=== PATIENT | female | born 1950 | race Caucasian/White ===

== ENCOUNTER 2022-03-25 08:15 | Outpatient (RCR) | payer OTHER, SELFPAY | END 2022-06-25 10:42 | disposition home or self-care (01) | PROVIDERS: PCP Family Medicine; Visit Provider Family Medicine | DX: R26.9 Unspecified abnormalities of gait and mobility (principal); Z51.89 Encounter for other specified aftercare | CPT/HCPCS: 97110; 97162 ==

== ENCOUNTER 2022-12-09 17:28 | Inpatient (IN) | payer OTHER, SELFPAY ==
[2022-12-09] VITALS (14 sets, daily range): BP systolic 132–192; BP diastolic 79–100; PULSE 63–92; RESP 16–18; TEMP 36.4–36.6; O2SAT 87–98; BMI 47.8
--- NOTE | 2022-12-09 21:02 | ED.ABDPAIN ---
HPI - Abdominal Pain General Time Seen by Provider: 21:02 Date Seen: 12/09/22 Chief Complaint: Abdominal Pain Stated Complaint: Bloody stool and constipation Time Seen by Provider: 12/09/22 21:02 Source: patient, RN notes reviewed and old records reviewed Mode of arrival: ambulatory Limitations: no limitations History of Present Illness HPI narrative: Desiree is a very pleasant 72-year-old female with a history of GI bleed in 2017 who comes to the emergency room for evaluation regarding left lower quadrant pain and associated diarrhea with blood. Patient had the onset of diarrhea at approximately 1400 hours earlier today. She notes that she is usually constipated. She went to the bathroom and then laid down and when she had to go back she had bright red blood. She has pain in the left lower quadrant but it is also now radiating into the suprapubic area. She has not had a fever but states that she feels chilled. She has had nausea but no vomiting. She has not had a history of diverticulitis in the past. According to notes she does have a history of possible ulcers at our bear its esophagus. She is not feeling lightheaded and nor has she had chest pain. At baseline she has shortness of breath that she describes as exercise-induced asthma. She is not particularly worse at this time. Patient is not currently on blood thinners but does take aspirin daily. No aspirin yet today. Last dose 24 hours ago. Related Data Allergies Allergy/AdvReac Type Severity Reaction Status Date / Time duloxetine [From Cymbalta] AdvReac Severe Dizziness Verified 12/09/22 17:48 Review of Systems Status of ROS Reports: 10 or more systems reviewed and unremarkable except as noted in History and below Const Reports: chills; Denies: fever or fatigue ENMT Denies: throat pain, neck pain or difficulty swallowing Cardio Denies: chest pain, palpitations, swelling of feet/ankles or lightheadedness GI Reports: abdominal pain, nausea, diarrhea and blood in stool; Denies: difficulty swallowing Denies: painful urination or urinary frequency Musculo Denies: back pain or neck pain Integ/Breast Denies: rash Neuro Denies: headache or numbness in extremities Endo Denies: fatigue PFSH PFSH Social History Smoking Status: Former smoker Do you use any of these nicotine containing products: None Second hand tobacco smoke exposure: No How often do you have a drink containing alcohol: never How often do you have six or more drinks on one occasion: Never AUDIT-C Alcohol total score: 0 Non-prescribed substance use: denies use Exam Narrative: Exam Narrative: Alert and oriented. Normal color. Normal mentation. Oral cavity with moist mucous membranes and neck is supple. Heart with regular rate and rhythm and lungs are clear bilaterally. Abdomen is with tenderness left lower quadrant suprapubic area and left upper quadrant. Abdomen is obese and is otherwise soft. Lower extremities without edema. Moving all extremities. No peritoneal signs at this time. Const: Vital Signs, click to edit/add: Vital Signs - 24 hr 12/09/22 17:45 12/09/22 19:54 12/09/22 21:08 Temperature 97.9 F 97.6 F Pulse Rate 66 Pulse Rate [Right Pulse Oximeter] 63 71 Respiratory Rate 16 18 18 Blood Pressure 154/90 H Blood Pressure [Ri ght Upper Arm] 132/79 151/81 H Pulse Oximetry 98 96 97 Oxygen Delivery Me thod Room Air Room Air 12/09/22 21:30 12/09/22 21:32 12/09/22 21:33 Temperature Pulse Rate 69 73 72 Pulse Rate [Right Pulse Oximeter] Respiratory Rate Blood Pressure 156/81 H Blood Pressure [Ri ght Upper Arm] Pulse Oximetry 87 L 89 91 Oxygen Delivery Me thod 12/09/22 22:29 12/09/22 22:30 12/09/22 22:33 Temperature Pulse Rate 88 92 84 Pulse Rate [Right Pulse Oximeter] Respiratory Rate Blood Pressure 192/94 H Blood Pressure [Ri ght Upper Arm] Pulse Oximetry 94 95 92 Oxygen Delivery Me thod 12/09/22 23:00 12/09/22 23:02 Temperature Pulse Rate 79 83 Pulse Rate [Right Pulse Oximeter] Respiratory Rate Blood Pressure 187/97 H Blood Pressure [Ri ght Upper Arm] Pulse Oximetry 92 92 Oxygen Delivery Me thod Documenting provider has reviewed patient's vital signs: yes Course Course Hospital Course: Differential diagnosis includes but is not limited to diverticulitis, colitis, diverticular bleed, enteritis, proctitis. Will place IV give morphine 4 mg Zofran 4 mg and 1 L of normal saline. Labs to include CBC, comprehensive, CRP, lipase, urinalysis and abdominal CT. Reevaluation(s) Reevaluation #1: Patient noted to be improved after morphine. CT shows colitis thought to be infectious in nature. Vital Signs Vital signs: Initial Vital Signs Temperature 97.9 F 12/09/22 17:45 Temperature Source Temporal Artery Scan 12/09/22 17:45 Pulse Rate 63 12/09/22 17:45 Pulse Rhythm Regular 12/09/22 17:45 Pulse Strength 3+ Normal 12/09/22 17:45 Respiratory Rate 16 12/09/22 17:45 Blood Pressure 132/79 12/09/22 17:45 Blood Pressure Mean 96 12/09/22 17:45 Pulse Oximetry 98 12/09/22 17:45 Oxygen Delivery Method Room Air 12/09/22 17:45 Vital Signs Temperature 97.9 F 12/09/22 17:45 Pulse Rate 63 12/09/22 17:45 Respiratory Rate 16 12/09/22 17:45 Blood Pressure 132/79 12/09/22 17:45 Pulse Oximetry 98 12/09/22 17:45 Oxygen Delivery Method Room Air 12/09/22 17:45 Temperature 97.6 F 12/09/22 19:54 Pulse Rate 83 12/09/22 23:02 Respiratory Rate 18 12/09/22 21:08 Blood Pressure 187/97 H 12/09/22 23:02 Pulse Oximetry 92 12/09/22 23:02 Oxygen Delivery Method Room Air 12/09/22 19:54 MDM - Abdominal Pain MDM Narrative Medical decision making narrative: 1. Colitis-patient noted to have colitis based on CT with elevated white count. Radiologist further suggest that this is infectious in nature. Will start Zosyn 3.375 g IV after discussion with [facility]. Stool culture is pending. Patient has not had any further diarrhea or blood per rectum since she has been here. Vital E stable at this time as well. 2. Abdominal pain-patient's pain has been controlled with morphine in combination with Zofran. 3. Disposition-admit to the floor under the care of [facility] physician Dr. [place] Medical Records Attestation: I reviewed the patient's medical records. Lab Data Attestation: I reviewed the patient's lab results. Labs: Lab Results 12/09/22 Range/Units 20:45 WBC 11.75 H (4.50-11.00) K/uL RBC 5.06 (4.00-5.20) m/uL Hgb 15.8 (12.0-16.0) gm/dL Hct 46.9 (33.0-51.0) % MCV 93 (80-100) fL MCH 31 (26-34) pg MCHC 34 (32-36) gm/dL RDW Coeff of Tomer 12.4 (11.5-15.5) % Plt Count 186 (140-440) K/uL Neut % (Auto) 89.3 H (42.0-72.0) % Lymph % (Auto) 4.5 L (20-44) % [place] % (Auto) 4.9 (0.0-11.0) % Eos % (Auto) 0.3 (0.0-7.0) % Baso % (Auto) 0.0 (0.0-3.0) % Neut # (Auto) 10.50 H (1.7-7.0) K/uL Lymph # (Auto) 0.50 L (0.90-2.90) K/uL [place] # (Auto) 0.60 (0.00-0.90) K/UL Eos # (Auto) 0.00 (0.00-0.50) K/uL Baso # (Auto) 0.00 (0.00-0.30) K/uL Sodium 135 (135-149) mmol/L Potassium 3.9 (3.6-5.1) mmol/L Chloride 103 (96-114) mmol/L Carbon Dioxide 24 (20-32) mmol/L BUN 16 (7-30) mg/dL Creatinine 1.2 (0.5-1.5) mg/dL Estimated Creat Clear 36.09 Estimated GFR 49 ml/min Glucose 210 H (60-115) mg/dL Calcium 9.0 (8.4-10.6) mg/dL Total Bilirubin 0.6 (0.1-1.5) mg/dL AST 25 (12-35) U/L ALT 21 (4-35) U/L Alkaline Phosphatase 110 (40-150) U/L C-Reactive Protein < 0.5 L (0.5-1.0) mg/dL Total Protein 7.6 (6.0-8.3) g/dL Albumin 4.4 (3.3-5.0) g/dL Lipase 97 (23-300) U/L Imaging Data CT scan - abdomen: Attestation: I have reviewed the pertinent imaging results. Radiologist's impression: ower chest: Small hiatal hernia. Liver: Unremarkable. Normal in size and attenuation. No suspicious masses. Gallbladder and bile ducts: Unremarkable. No stones or inflammation. No biliary dilatation. Pancreas: Unremarkable. No mass or inflammation. Spleen: Unremarkable. Normal in size. No masses. Adrenal glands: Unremarkable. No nodules. Kidneys: Unremarkable. No suspicious masses, stones, or hydronephrosis. GI tract: Acute inflammation and edema present in the distal colon. Remainder of the GI tract is normal in caliber and appearance. Normal appendix. Vasculature: Abdominal aorta is normal in caliber. Mesenteric arteries are patent. Lymph nodes: No lymphadenopathy. Peritoneum/Abdominal Wall: Unremarkable. No sign of mass or infiltration. No free air or significant free fluid. Pelvis: Unremarkable. Bones: Multilevel degenerative spondylosis in the lumbar spine. IMPRESSION: Acute distal colitis which is likely infectious in nature. Discharge Plan Discharge Clinical Impression: Colitis with rectal bleeding, Colitis Patient Disposition: Admitted As Observation
--- NOTE | 2022-12-09 21:10 | CRLHL7_ITS ---
For Patients: As a result of the Cures Act, medical imaging exams and procedure reports are released immediately into your electronic medical record. You may view this report before your referring provider. If you have questions, please contact your health care provider. INDICATION: Left lower quadrant abdomen pain with blood in stool. TECHNIQUE: CT abdomen and pelvis acquired with 132 cc Isovue 370 IV contrast. COMPARISON: MRI abdomen July 08, 2022. PET scan July 12, 2021. FINDINGS: Lower chest: Small hiatal hernia. Liver: Unremarkable. Normal in size and attenuation. No suspicious masses. Gallbladder and bile ducts: Unremarkable. No stones or inflammation. No biliary dilatation. Pancreas: Unremarkable. No mass or inflammation. Spleen: Unremarkable. Normal in size. No masses. Adrenal glands: Unremarkable. No nodules. Kidneys: Unremarkable. No suspicious masses, stones, or hydronephrosis. GI tract: Acute inflammation and edema present in the distal colon. Remainder of the GI tract is normal in caliber and appearance. Normal appendix. Vasculature: Abdominal aorta is normal in caliber. Mesenteric arteries are patent. Lymph nodes: No lymphadenopathy. Peritoneum/Abdominal Wall: Unremarkable. No sign of mass or infiltration. No free air or significant free fluid. Pelvis: Unremarkable. Bones: Multilevel degenerative spondylosis in the lumbar spine. IMPRESSION: Acute distal colitis which is likely infectious in nature. Please note that all CT scans at this facility use dose modulation, iterative reconstruction, and/or weight-based dosing when appropriate to reduce radiation dose to as low as reasonably achievable. Dictated by Chance Ramesh MD @ 12/09/2022 10:58:02 PM (Electronically Signed)
[2022-12-09] MEDS: ONDANSETRON 2 MG/ML inj 4 MG IVP (21:21)
[2022-12-09] MEDS: MORPHINE 4 MG/ML INJ IVP (21:22)
[2022-12-09 21:32] LABS: Eosinophils Percent Auto 0.3 % (0.0-7.0); Hematocrit 46.9 % (33.0-51.0); Hemoglobin* 15.8 gm/dL (12.0-16.0); Lymphocytes Percent Auto 4.5 % (20-44); Mean Corpuscular HGB Conc 34 gm/dL (32-36); Mean Corpuscular Hemoglobin 31 pg (26-34); Mean Corpuscular Volume 93 fL (80-100); Monocytes Percent Auto 4.9 % (0.0-11.0); Neutrophils Percent Auto 89.3 % (42.0-72.0); Platelet Count* 186 K/uL (140-440); RDW Coefficient of Variation % 12.4 % (11.5-15.5); Red Blood Count 5.06 m/uL (4.00-5.20); White Blood Count* 11.75 K/uL (4.50-11.00)
[2022-12-09 21:34] LABS: Albumin* 4.4 g/dL (3.3-5.0); Chloride* 103 mmol/L (96-114); Slide Review Reflex No; Sodium* 135 mmol/L (135-149)
[2022-12-09 21:35] LABS: Potassium* 3.9 mmol/L (3.6-5.1)
[2022-12-09 21:37] LABS: Aspartate Amino Transferase* 25 U/L (12-35); Bilirubin Total* 0.6 mg/dL (0.1-1.5); Carbon Dioxide* 24 mmol/L (20-32); Creatinine* 1.2 mg/dL (0.5-1.5); Est. Creatinine Clearance* 36.09; Estimated Glomerular Filt Rate 49 ml/min; Total Protein* 7.6 g/dL (6.0-8.3)
[2022-12-09 21:38] LABS: Alanine Aminotransferase* 21 U/L (4-35); Alkaline Phosphatase* 110 U/L (40-150); Blood Urea Nitrogen* 16 mg/dL (7-30); Glucose* 210 mg/dL (60-115); Lipase* 97 U/L (23-300)
[2022-12-09 21:41] LABS: C Reactive Protein* < 0.5 mg/dL (0.5-1.0)
[2022-12-09] MEDS: CALCIUM CARBONATE 500 MG CHEW PO (23:02)
[2022-12-09] MEDS: PIPERACILLIN/TAZOBACTAM 3.375 GM in 0.9 % SODIUM CHLORIDE Mini-bag 100 ML IVPB (23:52)
--- NOTE | 2022-12-09 23:53 | ED.NURSE ---
Report to [facility]. Patient will be going to room 278. Zosyn infusing on admission.
[2022-12-10] MEDS: HYDROmorphone 0.5 mg/0.5 ml inj IVP ×2 (00:05→06:40)
[2022-12-10 00:10] VITALS: BP 178/91; PULSE 75; RESP 18; TEMP 36.4; O2SAT 95; BMI 50.0
--- NOTE | 2022-12-10 01:03 | P.IMPN_ITS ---
Progress Note: A&P Assessment and plan (1) Colitis with rectal bleeding: Status: Acute Plan Jose [facility] Hospitalist collaboration: I have discussed in detail with Dr. Tsang. 72-year-old female who presented to the ED with left lower quadrant pain, diarrhea, bright red blood from the rectum and then had turned darker, since arriving to the ED, no episodes of bleeding in ED seen, but on arrival to the medical floor she had recurrent bright red blood per rectum. HTN but no hypotension on the medical floor. She has had chills, no fever. Abdominal pain crampy in nature, radiates into the suprapubic region. 8/10 in severity. Has not noticed a difference in pain with Morphine or Dilaudid. She has had nausea but no vomiting. No previous history of diverticulitis, but has had a history of GI bleed in 2017 related to possible ulcers of the esophagus and hiatal he rnia. No chest pain or shortness of breath that is new (does have exercise- induced asthma, but she feels her sob is at baseline). No lightheadedness, cough. No recent travel. No recent antibiotic use. Does take ASA 81mg daily but has not taken tonite. Laboratory/imaging in the ED: WBC elevated 11.75, hemoglobin 15.8, hematocrit 46.9, platelets 186. Sodium 135, potassium 3.9, chloride 103, CO2 24, BUN 16, creatinine 1.2, glucose 210, calcium 9, total bilirubin 0.6, AST 25, ALT 21, alk phosphatase 110, total protein 7.6, albumin 4.4, CRP less than 0.5. Abdominal pelvis CT reviewed acute distal colitis likely infectious in nature. In the ED she was given IV fluids, IV Dilaudid and IV morphine, Zofran, and Zosyn and has been admitted for further evaluation. Telemedicine exam: Vitals reviewed No apparent distress, alert, oriented x3 Follows commands, no lateralizing weakness Pupils equal and reactive, no scleral icterus Lips and mouth are dry, tongue midline on protrusion Neck trachea midline Heart regular rate and rhythm, no murmurs Lungs clear bilateral no crackles no wheezes Abdomen bowel sounds are positive, soft, nondistended, tenderness left lower quadrant and suprapubic region for nursing, no rebound tenderness for nursing Lower extremities no pitting edema Skin dry Assessment and plan: Left lower quadrant abdominal pain Rectal bleeding Acute colitis: Plan: Continue Zosyn that was initiated in the ED, continue IV fluid hydration, monitor the recurrent bleeding (if becomes hemodynamically unstable or if frequent bleeding that is continuos then will need to discuss with Surgery/GI tonite, but currently no tachycardia or hypotension), repeat laboratory in the a.m., stool culture is pending which was ordered in the ED. No recent antibiotic use, no history of c diff. She is not on any anticoagulation, but is on ASA 81mg at HS, hold at this time. IV fluids, IV Dilaudid, oral Oxy IR, Tylenol, Zofran. Exercise-induced asthma: No exacerbation.Find out her home inhaler dosing with med rec, she states she stopped taking one of the inhalers consistently due to gums being swollen and red when she went to a dental appointment HTN: She thinks Amlodipine/Losartan: She is having HTN now sys 178 but no SPEARS/blurry vision, will hold to avoid hypotension with GI bleed. Hypothyroidism: On Synthroid. Will resume once have dosing and med rec complete Hyperlipidemia: Rosuvastatin takes at at bedtime. Will resume once have the dosing and confirm this with med rec Restless leg syndrome: Patient was unable to tell me which one she takes, will resume once we have this verified with med rec Type 2 diabetes, she thinks she is on Ozempic once a week, again we will confirm this with med rec, monitor glucose again in the a.m. SUPA on CPAP at at bedtime. She does not have her CPAP with, nasal cannula O2 tonight Diet: N.p.o. except ice chips and okay to take oral meds, held on clear liquid diet due to recurrent bleeding on medical floor DVT prophylaxis SCDs, ambulatory, hold on pharmacologic prophylaxis with bleeding with bleeding CODE STATUS: Full code Please call E Hospitalist with questions Subjective Date Seen: 12/10/22 Exam Const: Vital Signs, click to edit/add: Vital Signs - 24 hr 12/09/22 17:45 12/09/22 19:54 12/09/22 21:08 Temperature 97.9 F 97.6 F Pulse Rate 66 Pulse Rate [Right Pulse Oximeter] 63 71 Respiratory Rate 16 18 18 Blood Pressure 154/90 H Blood Pressure [Ri ght Upper Arm] 132/79 151/81 H Pulse Oximetry 98 96 97 Oxygen Delivery Me thod Room Air Room Air 12/09/22 21:30 12/09/22 21:32 12/09/22 21:33 Temperature Pulse Rate 69 73 72 Pulse Rate [Right Pulse Oximeter] Respiratory Rate Blood Pressure 156/81 H Blood Pressure [Ri ght Upper Arm] Pulse Oximetry 87 L 89 91 Oxygen Delivery Me thod 12/09/22 22:29 12/09/22 22:30 12/09/22 22:33 Temperature Pulse Rate 88 92 84 Pulse Rate [Right Pulse Oximeter] Respiratory Rate Blood Pressure 192/94 H Blood Pressure [Ri ght Upper Arm] Pulse Oximetry 94 95 92 Oxygen Delivery Me thod 12/09/22 23:00 12/09/22 23:02 12/09/22 23:03 Temperature Pulse Rate 79 83 76 Pulse Rate [Right Pulse Oximeter] Respiratory Rate Blood Pressure 187/97 H Blood Pressure [Ri ght Upper Arm] Pulse Oximetry 92 92 91 Oxygen Delivery Me thod 12/09/22 23:30 12/09/22 23:32 Temperature Pulse Rate 86 87 Pulse Rate [Right Pulse Oximeter] Respiratory Rate Blood Pressure 190/100 H Blood Pressure [Ri ght Upper Arm] Pulse Oximetry 96 94 Oxygen Delivery Me thod Labs Labs: Laboratory Results - last 24 hr 12/09/22 20:45 WBC 11.75 H RBC 5.06 Hgb 15.8 Hct 46.9 MCV 93 MCH 31 MCHC 34 RDW Coeff of Tomer 12.4 Plt Count 186 Neut % (Auto) 89.3 H Lymph % (Auto) 4.5 L [place] % (Auto) 4.9 Eos % (Auto) 0.3 Baso % (Auto) 0.0 Neut # (Auto) 10.50 H Lymph # (Auto) 0.50 L [place] # (Auto) 0.60 Eos # (Auto) 0.00 Baso # (Auto) 0.00 Sodium 135 Potassium 3.9 Chloride 103 Carbon Dioxide 24 BUN 16 Creatinine 1.2 Estimated Creat Clear 36.09 Estimated GFR 49 Glucose 210 H Calcium 9.0 Total Bilirubin 0.6 AST 25 ALT 21 Alkaline Phosphatase 110 C-Reactive Protein < 0.5 L Total Protein 7.6 Albumin 4.4 Lipase 97
[2022-12-10] MEDS: 0.9 % SODIUM CHLORIDE 1000 ml 1,000 ML 100 ML IV ×2 (01:37→12:46)
[2022-12-10] MEDS: PANTOPRAZOLE SODIUM 40 MG INJ IVP (01:38)
[2022-12-10 03:00] VITALS: BP 146/81; PULSE 108; RESP 14; TEMP 36.4; O2SAT 96
--- NOTE | 2022-12-10 05:53 | PC.NURSE ---
Patient admitted to unit at 0010 with infectious colitis. Desiree is a pleasant and cooperative 72 year old female, accompanied to room by Tin. Alert and oriented x 4. Per patient, she had diarrhea around 2pm that had blood in it, she laid down for a bit after having the stool and then noticed lower left abdominal discomfort. Shortly after laying down she ended up needing to use the bathroom again and had bright red rectal bleeding. Patients abdomen is large, round and soft, tender to palpation. Bowel sounds active x 4 quadrants. Denies any nausea or vomiting at this time, patient did have nausea while in ER but was managed well with ondansetron. Continues to report pain to left lower quadrant, patient received prn dilaudid prior to arriving on the unit which has reduced pain to 3/10. Patient reports that she utilizes a CPAP at home but did not bring with. Lung sounds clear, denies a cough but reports that she does have shortness of breath on exertion which is normal for her at her baseline. Continent of bladder and bowel, currently requiring a depend due to continued rectal bleeding. Ambulates with stand by assist. Denies any dizziness. Admission completed with [facility], patient NPO but ok to have ice chips.
[2022-12-10] MEDS: PIPERACILLIN/TAZOBACTAM 3.375 GM in 0.9 % SODIUM CHLORIDE Mini-bag 100 ML IVPB ×3 (06:40→18:59)
[2022-12-10 07:00] VITALS: BP 132/68; PULSE 90; PULSE 94; RESP 16; TEMP 37.4; O2SAT 94
[2022-12-10 07:23] LABS: Eosinophils Percent Auto 0.1 % (0.0-7.0); Hematocrit 43.6 % (33.0-51.0); Hemoglobin* 14.9 gm/dL (12.0-16.0); Immature Granulocytes Pct Auto 0.2 %; Lymphocytes Percent Auto 7.3 % (20-44); Mean Corpuscular HGB Conc 34 gm/dL (32-36); Mean Corpuscular Hemoglobin 32 pg (26-34); Mean Corpuscular Volume 92 fL (80-100); Monocytes Percent Auto 6.3 % (0.0-11.0); Neutrophils Percent Auto 86.1 % (42.0-72.0); Platelet Count* 190 K/uL (140-440); RDW Coefficient of Variation % 12.6 % (11.5-15.5); Red Blood Count 4.72 m/uL (4.00-5.20)
[2022-12-10 07:24] LABS: Slide Review Reflex No
[2022-12-10 07:36] LABS: Albumin* 3.6 g/dL (3.3-5.0); Chloride* 107 mmol/L (96-114)
[2022-12-10 07:37] LABS: Sodium* 135 mmol/L (135-149)
[2022-12-10 07:39] LABS: Aspartate Amino Transferase* 21 U/L (12-35); Bilirubin Total* 0.7 mg/dL (0.1-1.5); Carbon Dioxide* 22 mmol/L (20-32); Creatinine* 1.1 mg/dL (0.5-1.5); Est. Creatinine Clearance* 37.64; Estimated Glomerular Filt Rate 54 ml/min
[2022-12-10 07:40] LABS: Alanine Aminotransferase* 19 U/L (4-35); Alkaline Phosphatase* 81 U/L (40-150); Blood Urea Nitrogen* 16 mg/dL (7-30); Calcium* 8.3 mg/dL (8.4-10.6); Glucose* 156 mg/dL (60-115); Total Protein* 6.5 g/dL (6.0-8.3)
--- NOTE | 2022-12-10 07:46 | PM.IMHP1 ---
Hospitalist- H&P: HPI History of Present Illness Date Seen: 12/10/22 Chief complaint: Bloody stool and constipation Narrative: Desiree Fitzpatrick is a 72 year old female who presented to our ER on 12/09 for rectal bleeding. She started having bloody stools yesterday afternoon after an episode of diarrhea; now intermittently just passing jenae blood per rectum. Intermittent abdominal cramping, no pain at rest. Had Burmese food for lunch yesterday, had same food with no symptoms. Traveled to [place], [place] 2 weeks ago. Last colonoscopy was in [address] Sidhu and exhibited moderate diverticulosis in sigmoid and descending colon, narrowing of the colon in association with diverticular opening, and evidence of diverticular spasm. ER Course and Findings - reassuring Hgb and BUN; hemodynamically stable - CT ab and pelvis revealed acute distal colitis, likely infectious in nature per formal radiology read - patient initiated on Zosyn and admitted overnight by the E-hospitalist This morning, Desiree has no concerns for hospitalist team. She continues to have intermittent BRBPR without abdominal pain (mild cramping before a BM). No urinary symptoms, no nausea or vomiting. She has been able to get up to the bathroom independently without lightheadedness or dizziness. She is thirsty. PCP is Dr. Clancy locally, PMHx updated below. Review of Systems Narrative: No lightheadedness or dizziness. No chest pain or dyspnea. Recently lost 50 pounds on Bydureon (intentional) [facility] Medical History (Updated 12/10/22 @ 11:38 by Vangie Red MD) Diverticulosis ?K57.90 - Diverticulosis of intestine, part unspecified, without perforation or abscess without bleeding (ICD-10) Back esophagus ?K22.70 - Back's esophagus without dysplasia (ICD-10) Overactive bladder ?N32.81 - Overactive bladder (ICD-10) Non-insulin dependent type 2 diabetes mellitus ?E11.9 - Type 2 diabetes mellitus without complications (ICD-10) Hypertension ?I10 - Essential (primary) hypertension (ICD-10) Hyperlipidemia ?E78.5 - Hyperlipidemia, unspecified (ICD-10) SUPA on CPAP ?G47.33 - Obstructive sleep apnea (adult) (pediatric) (ICD-10) Endometrial cancer ?C54.1 - Malignant neoplasm of endometrium (ICD-10) Surgical History (Updated 12/10/22 @ 11:23 by Vangie Red MD) History of bilateral knee replacement ?Z96.653 - Presence of artificial knee joint, bilateral (ICD-10) History of total abdominal hysterectomy ?Z90.710 - Acquired absence of both cervix and uterus (ICD-10) H/O dilation and curettage ?Z98.890 - Other specified postprocedural states (ICD-10) Social History (Updated 12/10/22 @ 07:58 by Vangie Red MD) Narrative: Lives with Jenae (MDM if needed) in [place]. 3 adult children. 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 Quit smoking prior to 1999. No ETOH. Full Code. What is your current living situation: I presently have a place to live Problems where you live: no known problems Problems where you live details: NA In the past 12 months, utilities in danger of being shut off: no In the past 12 mos, have been you worried that your food would run out before you had money to buy more?: never true In the past 12 mos, the food you bought just didn't last and you didn't have money to buy more?: never true Highest level of school completed/degree received: Associate degree: occupational, technical, vocational program Smoking Status: Never smoker Do you use any of these nicotine containing products: None Second hand tobacco smoke exposure: No How often do you have a drink containing alcohol: never How often do you have six or more drinks on one occasion: Never AUDIT-C Alcohol total score: 0 Non-prescribed substance use: denies use Caffeine: Yes How often does anyone, including family, friends and others, physically hurt you: How often does anyone, including family, friends and others, insult or talk down to you: How often does anyone, including family, friends and others, threaten you with harm: How often does anyone, including family, friends and others, scream or curse at you: service: No Meds Home Medications and Allergies Home Medications Medication Instructions Recorded Confirmed Type amlodipine 5 mg tablet 5 mg PO DAILY 12/10/22 12/10/22 History fluticasone 250 mcg-salmeterol 50 1 ea inhalation BID 12/10/22 12/10/22 History mcg/dose blistr powdr for inhalation gabapentin 300 mg capsule 300 mg PO DAILY 12/10/22 12/10/22 History levothyroxine 150 mcg tablet 150 mcg PO DAILY 12/10/22 12/10/22 History losartan 50 mg tablet 50 mg PO DAILY 12/10/22 12/10/22 History rosuvastatin 10 mg tablet 10 mg PO QPM 12/10/22 12/10/22 History semaglutide 2 mg/dose (8 mg/3 mL) 2 mg subcut .weekly 12/10/22 12/10/22 History subcutaneous pen injector (Ozempic) Home Medication Comments: Also uses an OTC PPI a few times/week. Takes Fluticasone/Salmeterol 1-2 times/week (when on this BID, she noted gingivitis) Allergies Allergy/AdvReac Type Severity Reaction Status Date / Time duloxetine [From Cymbalta] AdvReac Severe Dizziness Verified 12/09/22 17:48 Exam Narrative: Exam Narrative: GEN: Alert and laying comfortably in bed, nontoxic HEENT: EOMIs bilaterally, no scleral icterus CV: RRR, No concerning murmurs, rubs, or gallops R: LCTA bilaterally without concerning wheezing, air movement adequate Ab: Soft, nondistended, no ttp GI: no external hemorrhoids or bleeding lesions noted on external exam Skin: No concerning skin lesions or rashes on exposed skin Neuro: No focal deficits, no resting tremor Psych: Appropriate Const: Vital Signs, click to edit/add: Vital Signs - 24 hr 12/09/22 17:45 12/09/22 19:54 12/09/22 21:08 Temperature 97.9 F 97.6 F Pulse Rate 66 Pulse Rate [Left] Pulse Rate [Right Pulse Oximeter] 63 71 Respiratory Rate 16 18 18 Blood Pressure 154/90 H Blood Pressure [Le ft Arm] Blood Pressure [Ri ght Upper Arm] 132/79 151/81 H Pulse Oximetry 98 96 97 Oxygen Delivery Me thod Room Air Room Air 12/09/22 21:30 12/09/22 21:32 12/09/22 21:33 Temperature Pulse Rate 69 73 72 Pulse Rate [Left] Pulse Rate [Right Pulse Oximeter] Respiratory Rate Blood Pressure 156/81 H Blood Pressure [Le ft Arm] Blood Pressure [Ri ght Upper Arm] Pulse Oximetry 87 L 89 91 Oxygen Delivery Me thod 12/09/22 22:29 12/09/22 22:30 12/09/22 22:33 Temperature Pulse Rate 88 92 84 Pulse Rate [Left] Pulse Rate [Right Pulse Oximeter] Respiratory Rate Blood Pressure 192/94 H Blood Pressure [Le ft Arm] Blood Pressure [Ri ght Upper Arm] Pulse Oximetry 94 95 92 Oxygen Delivery Me thod 12/09/22 23:00 12/09/22 23:02 12/09/22 23:03 Temperature Pulse Rate 79 83 76 Pulse Rate [Left] Pulse Rate [Right Pulse Oximeter] Respiratory Rate Blood Pressure 187/97 H Blood Pressure [Le ft Arm] Blood Pressure [Ri ght Upper Arm] Pulse Oximetry 92 92 91 Oxygen Delivery Wi thod 12/09/22 23:30 12/09/22 23:32 12/10/22 00:10 Temperature 97.6 F Pulse Rate 86 87 Pulse Rate [Left] 75 Pulse Rate [Right Pulse Oximeter] Respiratory Rate 18 Blood Pressure 190/100 H Blood Pressure [Le ft Arm] 178/91 H Blood Pressure [Ri ght Upper Arm] Pulse Oximetry 96 94 95 Oxygen Delivery Wi thod Room Air 12/10/22 00:10 12/10/22 03:00 Temperature 97.5 F L Pulse Rate Pulse Rate [Left] 108 H Pulse Rate [Right Pulse Oximeter] Respiratory Rate 18 14 Blood Pressure Blood Pressure [Le ft Arm] 146/81 H Blood Pressure [Ri ght Upper Arm] Pulse Oximetry 95 96 Oxygen Delivery Me thod Room Air Room Air Hospitalist - H&P: Result Labs Labs: Short CBC 12/09/22 12/10/22 Range/Units 20:45 06:56 WBC 11.75 H 11.90 H (4.50-11.00) K/uL Hgb 15.8 14.9 (12.0-16.0) gm/dL Hct 46.9 43.6 (33.0-51.0) % Plt Count 186 190 (140-440) K/uL BMP 12/09/22 12/10/22 20:45 06:56 Sodium 135 135 Potassium 3.9 4.0 Chloride 103 107 Carbon Dioxide 24 22 BUN 16 16 Creatinine 1.2 1.1 Glucose 210 H 156 H Calcium 9.0 8.3 L Liver Function 12/09/22 12/10/22 Range/Units 20:45 06:56 Total Bilirubin 0.6 0.7 (0.1-1.5) mg/dL AST 25 21 (12-35) U/L ALT 21 19 (4-35) U/L Alkaline Phosphatase 110 81 (40-150) U/L Albumin 4.4 3.6 (3.3-5.0) g/dL Assessment and Plan Assessment and plan (1) Colitis with rectal bleeding: Problem comment: - continue Zosyn (12/09) - slowly advance diet to clear liquids today - defer EGD at this time given reassuring BUN and evidence of colitis on CT, continue PPI - follow Hgb - will need close outpatient f/u Status: Acute (2) Diverticulosis: Problem comment: - per last colonoscopy with Dr. Sidhu (2016): Impressions/Post-Op Diagnosis: - Moderate diverticulosis in the sigmoid colon and in the descending colon. There was narrowing of the colon in association with the diverticular opening. There was evidence of diverticular spasm. - The examination was otherwise normal on direct and retroflexion views. - No specimens collected. Status: Acute (3) SUPA on CPAP: Problem comment: - will ask family to bring in CPAP Status: Acute (4) Non-insulin dependent type 2 diabetes mellitus: Problem comment: - last A1C 5.4 - takes Ozempic QWednday Status: Acute
[2022-12-10 11:00] VITALS: BP 134/79; PULSE 88; RESP 18; TEMP 37.2; O2SAT 94
[2022-12-10] MEDS: LEVOTHYROXINE 75 MCG TABLET 150 MCG PO (11:01)
[2022-12-10 12:18] LABS: Hemoglobin* 13.5 gm/dL (12.0-16.0)
[2022-12-10 15:00] VITALS: BP 151/94; PULSE 84; RESP 18; TEMP 36.6; O2SAT 93
[2022-12-10 19:00] VITALS: BP 156/72; PULSE 81; RESP 18; TEMP 36.8; O2SAT 93
[2022-12-10] MEDS: ROSUVASTATIN CALCIUM 10 MG TABLET PO (19:00)
[2022-12-10] MEDS: ACETAMINOPHEN 325 MG TABLET 650 MG PO (19:00)
[2022-12-10 19:20] LABS: Hemoglobin* 13.4 gm/dL (12.0-16.0)
[2022-12-11 00:20] VITALS: BP 131/78; PULSE 83; RESP 18; TEMP 37.1; O2SAT 91
--- NOTE | 2022-12-11 00:26 | PC.NURSE ---
Nursing Cares Hours: [id number] Pt this shift calm and cooperative with cares. Alert and oriented. VSS. C/o abdominal pain and cramping 3/10 pain X1, treated per eMAR. Up to bathroom with SB assist. Bleeding from rectum decreased since NOC. Changing briefs as needed, appears to be about 1 Tbs or less of bright red blood in toilet with each visit to BR. Tolerating clear liquid.
[2022-12-11] MEDS: 0.9 % SODIUM CHLORIDE 1000 ml 1,000 ML 100 ML IV ×2 (00:27→11:03)
[2022-12-11] MEDS: PIPERACILLIN/TAZOBACTAM 3.375 GM in 0.9 % SODIUM CHLORIDE Mini-bag 100 ML IVPB ×3 (00:30→12:26)
[2022-12-11 03:25] VITALS: BP 112/74; PULSE 75; RESP 18; TEMP 36.9; O2SAT 93
[2022-12-11] MEDS: LEVOTHYROXINE 75 MCG TABLET 150 MCG PO (06:46)
[2022-12-11 06:51] LABS: Basophils Percent Auto 0.1 % (0.0-3.0); Hematocrit 39.6 % (33.0-51.0); Hemoglobin* 13.1 gm/dL (12.0-16.0); Immature Granulocytes Pct Auto 0.3 %; Mean Corpuscular HGB Conc 33 gm/dL (32-36); Mean Corpuscular Hemoglobin 31 pg (26-34); Mean Corpuscular Volume 95 fL (80-100); Monocytes Percent Auto 6.2 % (0.0-11.0); Neutrophils Percent Auto 83.4 % (42.0-72.0); Platelet Count* 163 K/uL (140-440); RDW Coefficient of Variation % 13.1 % (11.5-15.5); Red Blood Count 4.17 m/uL (4.00-5.20); White Blood Count* 11.04 K/uL (4.50-11.00)
[2022-12-11 07:01] LABS: Albumin* 3.2 g/dL (3.3-5.0); Chloride* 108 mmol/L (96-114)
[2022-12-11 07:02] LABS: Potassium* 3.7 mmol/L (3.6-5.1); Sodium* 139 mmol/L (135-149)
[2022-12-11 07:04] LABS: Creatinine* 1.1 mg/dL (0.5-1.5); Est. Creatinine Clearance* 37.64; Estimated Glomerular Filt Rate 54 ml/min
[2022-12-11 07:05] LABS: Alanine Aminotransferase* 13 U/L (4-35); Alkaline Phosphatase* 74 U/L (40-150); Aspartate Amino Transferase* 18 U/L (12-35); Bilirubin Total* 0.9 mg/dL (0.1-1.5); Blood Urea Nitrogen* 12 mg/dL (7-30); Calcium* 7.8 mg/dL (8.4-10.6); Carbon Dioxide* 23 mmol/L (20-32); Glucose* 100 mg/dL (60-115); Total Protein* 5.8 g/dL (6.0-8.3)
[2022-12-11 07:07] LABS: C Reactive Protein* 8.6 mg/dL (0.5-1.0)
[2022-12-11 07:10] LABS: Slide Review Reflex No
[2022-12-11 07:30] VITALS: PULSE 74; PULSE 90
--- NOTE | 2022-12-11 07:36 | PC.NURSE ---
Pt alert and oriented x3, afebrile. Pt denies pain, SOB, chest pain, and N/V. Pt continues to bleed when voiding but blood is minimal. Pt is tolerating a clear liquid diet. Pt is up SBA. Pt slept throughout most of night. Night uneventful.?
[2022-12-11 07:57] VITALS: BP 131/66; PULSE 78; RESP 18; TEMP 36.9; O2SAT 96
[2022-12-11 12:27] VITALS: BP 146/73; PULSE 74; RESP 18; TEMP 36.6; O2SAT 96
--- NOTE | 2022-12-11 13:57 | PM.DS1 ---
DS: Providers Provider Date Seen: 12/11/22 Date of admission: 12/10/22 11:42 Primary care physician: Hallie Clancy MD Admitting Clinician: Levy Lindquist MD Consults: Nutrition Attending Physician on discharge: Vangie Red MD Date of Discharge: 12/11/22 DS: Diagnosis Discharge Diagnosis (1) Colitis with rectal bleeding: Status: Acute Problem details: - Zosyn (12/09) - advanced diet to full liquids without worsening symptoms - defer inpatient EGD given reassuring BUN and evidence of colitis on CT, continue PPI - Hgb remained stable (2) Diverticulosis: Status: Acute Problem details: - per last colonoscopy with Dr. Sidhu (2017): Impressions/Post-Op Diagnosis: - Moderate diverticulosis in the sigmoid colon and in the descending colon. There was narrowing of the colon in association with the diverticular opening. There was evidence of diverticular spasm. - The examination was otherwise normal on direct and retroflexion views. - No specimens collected. (3) SUPA on CPAP: Status: Acute (4) Non-insulin dependent type 2 diabetes mellitus: Status: Acute Problem details: - last A1C 5.4 - takes Ozempic QWednesday DS: Summary Hospital Course Hospital Course: Desiree is a very pleasant 72 yo female who presented to the ED on 12/09 for concerns of diarrhea with associated hematochezia. ED imaging revealed acute distal colitis, likely infectious in nature. Known history of diverticulitis (see above) Zosyn was initiated and patient placed on clear liquid diet, slowly advanced. She tolerated this well and her diarrhea improved significantly. Hgb remained stable (15 --> 13) and patient had no evidence of lightheadedness or dizziness. She was requesting discharge home on hospital day #2. Given stability, patient appropriate for discharge home on oral Augmentin + PPI with strict return precautions and close PCP f/u. Comorbidities otherwise remained stable and no changes were made to home medications. Status at Discharge Functional status at discharge: independent ambulation Overall status at discharge: patient is progressing back to baseline Time Spent with Patient Time attestation: Total time spent providing and/or coordinating discharge services: Time spent: Greater than 30 minutes Specific discharge activities: Patient education, medication management Exam Narrative: Exam Narrative: GEN: Alert and oriented, appears comfortable and nontoxic HEENT: Normal external ears, EOMIs bilaterally, no conjunctival pallor CV: RRR, No concerning murmurs R: LCTA bilaterally without concerning wheezing, air movement adequate Ab: soft, nontender, tolerates exam well, + bowel sounds Ext: wwp, no concerning edema Skin: No concerning skin lesions or rashes on exposed skin Neuro: No focal deficits Psych: Appropriate Const: Vital Signs, click to edit/add: Vital Signs - 24 hr 12/10/22 15:00 12/10/22 15:00 12/10/22 19:00 Temperature 98 F 98.3 F Pulse Rate [Right Pulse Oximeter] 84 84 81 Respiratory Rate 18 18 18 Blood Pressure [Le ft Arm] Blood Pressure [Ri ght Arm] 151/94 H 156/72 H Pulse Oximetry 93 93 Oxygen Delivery Me thod Room Air Room Air 12/11/22 00:20 12/11/22 00:20 12/11/22 03:25 Temperature 98.8 F 98.4 F Pulse Rate [Right Pulse Oximeter] 83 83 75 Respiratory Rate 18 18 18 Blood Pressure [Le ft Arm] 112/74 Blood Pressure [Ri ght Arm] 131/78 Pulse Oximetry 91 93 Oxygen Delivery Me thod Room Air Room Air 12/11/22 07:57 12/11/22 12:27 Temperature 98.4 F 97.8 F Pulse Rate [Right Pulse Oximeter] 78 74 Respiratory Rate 18 18 Blood Pressure [Le ft Arm] Blood Pressure [Ri ght Arm] 131/66 146/73 H Pulse Oximetry 96 96 Oxygen Delivery Me thod Room Air Room Air DS: Data Data Completed and Pending Labs on day of discharge: Labs from last 24 hours 12/11/22 12/10/22 06:10 18:53 WBC 11.04 H RBC 4.17 Hgb 13.1 13.4 Hct 39.6 MCV 95 MCH 31 MCHC 33 RDW Coeff of [place] 13.1 Plt Count 163 Neut % (Auto) 83.4 H Lymph % (Auto) 8.0 L [place] % (Auto) 6.2 Eos % (Auto) 2.0 Baso % (Auto) 0.1 Neut # (Auto) 9.20 H Lymph # (Auto) 0.90 [place] # (Auto) 0.70 Eos # (Auto) 0.20 Baso # (Auto) 0.00 Sodium 139 Potassium 3.7 Chloride 108 Carbon Dioxide 23 BUN 12 Creatinine 1.1 Estimated Creat Clear 37.64 Estimated GFR 54 Glucose 100 Calcium 7.8 L Total Bilirubin 0.9 AST 18 ALT 13 Alkaline Phosphatase 74 C-Reactive Protein 8.6 H Total Protein 5.8 L Albumin 3.2 L Discharge Plan Discharge Disposition: Home, Self-Care Date of Admission: 12/10/22 11:42 Attending Provider on Discharge: Vangie Red Primary Care Provider: Hallie Clancy Condition: Improved Anticipated Discharge Date/Time: 12/11/22 12:51 Discharge Medications: New omeprazole 20 mg capsule,delayed release(DR/EC) 20 mg PO DAILY Qty: 30 0RF amoxicillin-pot clavulanate 875-125 mg tablet 1 tab PO BID 6 Days Qty: 12 0RF Continued losartan 50 mg tablet 50 mg PO DAILY fluticasone propion-salmeterol 250-50 mcg/dose blister with device 1 ea inhalation BID amlodipine 5 mg tablet 5 mg PO DAILY levothyroxine 150 mcg tablet 150 mcg PO DAILY gabapentin 300 mg capsule 300 mg PO HS PRN rosuvastatin 10 mg tablet 10 mg PO HS Ozempic 2 mg/dose (8 mg/3 mL) pen injector 2 mg subcut .weekly Rx Instructions: takes on Friday albuterol sulfate 90 mcg/actuation HFA aerosol inhaler 2 inh inhalation Q4H PRN omeprazole 20 mg capsule,delayed release(DR/EC) 20 mg PO DAILY Held aspirin [Ecotrin Low Strength] 81 mg tablet,delayed release (DR/EC) 81 mg PO DAILY Hold Instructions: Resume on 12/25/22. hold for 2 weeks Discharge Orders: Discharge Order (Routine); Ordered 12/11/22 Ordered By: Vangie Red Patient Education: Omeprazole (By mouth), Amoxicillin/Clavulanate Potassium (By mouth), Colitis (ED) Additional Instructions: Keep your diet very bland (mostly liquids, soft foods, etc) until your symptoms have resolved, then you can add more in. Antibiotics and Omeprazole sent to pharmacy. See Dr. Clancy next week for a recheck. Activity Level: Activity as Tolerated and No strenuous activity Discharge Diet: Full Liquid Diet Detail: advance as tolerated Follow Up Appointments: Hallie Clancy MD [Primary Care Provider] - 12/31/22 10:55 am ([facility] to discuss colitis and colonoscopy referral) Forms: fishfishme Info Instructions
--- NOTE | 2022-12-11 15:12 | NUTR.NU ---
RDN with MD consult for colitis. Patient declined verbal education for designated caregiver and will pass along the handout provided. Patient was provided education on colitis nutrition therapy. RDN discussed following a low fiber diet when in inflammation and having abdominal pain and diarrhea. Discussed incorporating foods higher in fat and fiber when no symptoms are present and inflammation is low. RDN also reviewed some nutrition tips for colitis and adequate hydration. Handout reviewed and provided to patient from [facility] on colitis. RDN answered questions and patient verbalized understanding. RDN highly encouraged patient to participate in outpatient nutrition therapy for colitis and provided the process on how to do this. RDN's contact information was provided and patient was encouraged to contact RDN with questions.
--- NOTE | 2022-12-11 20:19 | PC.NURSE ---
shift note: pt vss stable. IV dc'd intact. pt up indept in room. No loose stools. Pt had small teaspoon size thick bloody discharge from rectum when using bathroom. LS clr. Reviewed dc instructions with pt and copies sent with pt. Belongings reviewed and sent with pt at dc.
== END 2022-12-11 14:00 | disposition home or self-care (01) | DRG 378 ==
LOC: ED 23:36 → MEDSURG 12-10 00:05
PROVIDERS: Family Medicine; Hospitalist; Admitting Provider Internal Medicine; Emergency Provider Family Medicine; PCP Family Medicine; Visit Provider Internal Medicine
DX: K92.1 Melena (principal); A09 Infectious gastroenteritis and colitis, unspecified; K57.30 Diverticulosis of large intestine without perforation or abscess without bleeding; G47.33 Obstructive sleep apnea (adult) (pediatric); E11.9 Type 2 diabetes mellitus without complications; Z79.84 Long term (current) use of oral hypoglycemic drugs; I10 Essential (primary) hypertension; J45.990 Exercise induced bronchospasm; E03.9 Hypothyroidism, unspecified; E78.5 Hyperlipidemia, unspecified; G25.81 Restless legs syndrome
CPT/HCPCS: 36415; 74177; 80053; 83690; 85018; 85025; 86140; 87045; 87046; 87427; 87493; 99199; 99285; A9270; C9113; G0378; J1170; J2270; J2405; J2543; J7030; Q9967

== ENCOUNTER 2025-05-06 21:26 | Inpatient (IN) | payer MEDICARE, SELFPAY ==
--- OUTSIDE RECORDS SUMMARY | 2025-05-06 21:29 | XMS_ITS | Continuity of Care Document ---
Author Organization [facility], [facility] Address [address] [place] [address] Care Team Providers Care Crystal Attacher Name Role Phone BUTCH VALDEZ Referring Provider [phone] Assessment No assessment recorded. Plan of Treatment Reminders Order Date Submit Date Provider Last Modified By Organization Details Last Modified Time Details Appointments [facility] 15 2025 01:15P James Ramey MD Not available Not available Not available Lab None recorded . Referral None recorded . Procedures bladder scan (PROC) 2024 025 [email or web address] [facility], [address], [address], [place], [address], 04/19/2025 10:45:07 Surgeries None recorded . Imaging None recorded . Medication Orders solifena paulo 10 mg tablet [facility] [address] [place], [place], [phone], 04/19/2025 10:55:40 Patient TargetsNo targets recorded. Patient Instructions Encounter Date Encounter Id Patient Instructions Last Modified By Organization Details Last Modified Time 04/19/2025 Sharda will try her on solifenacin 10mg daily and recheck in 3 months. [email or web address] Not available 04/19/2025 10:53:44 Reason for Referral None Reported. Results Created Date Observation Date Name Description Value Unit Range Abnormal Flag Note LastModifiedBy Organization Detail LastModifiedTime 04/19/2004/19/2025 bladd er scan (PROC ) Volume (in mL) 31 Not Available [facility] [address], [place], [address], 04/07/2025 15:48:53 Result Notes None recorded. 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 E11.8 : Type 2 Diabetes Mellitus with Unspecifie d Complicati ons Not Available [facility] 0 01:58:59 Micturiti on finding Active 2018 R32 : Unspecifie d urinary incontinen ce Not Available [facility] 0 01:58:59 Overactiv e urinary bladder 906666784 [facility] 5 10:50:56 Urge incontine nce of urine 46102681 Active 2024 Eriberto shields [facility] 5 10:51:05 Problem Notes None recorded. Procedures Surgical History Date Name Laterality Status Provider Name and Address Organization Details Recorded Time 5 Bladder Scan completed Nicole Meeks [facility] 04/19/2025 10:45:01 5 Bladder Scan completed Moni Terry [facility] 01/25/2025 10:34:30 5 Bladder Scan completed Eriberto Shaver [facility] 11/02/2024 10:45:26 5 Bladder Scan completed Ferny Johnson [facility] 09/21/2024 10:07:13 Colonoscopy completed Ferny Johnson [facility] 09/21/2024 10:06:45 Imaging Results None recorded. Procedure Notes None recorded. Medical Equipment None Reported. Allergies Allergen ID Allergen Name Allergen Category Reaction Reaction Severity Criticality Documentation Date Start Date Code Code System Note Provider Name and Address Organization Details Recorded Time 448664 duloxetin e medicatio n dizziness Not available Not available 09/21/20242017 94702 RxNorm Ferny shields [facility] 5 10:04:05 328727 fluticaso ne / salmetero l medicatio n Not available Not available Not available 09/21/20242022 70345 5 RxNorm unrec ogniz ed react ion (text : Hal soliman , code: [id number]) (from [facility]) Oscardusty shields [facility] 5 10:04:06 623395 mometason e furoate medicatio n rash Not available Not available 09/21/20242023 24343 RxNorm Burni ng and sting ing pain with appli catio n [facility] 10:04:09 Medications Name Sig Start Date Stop Date Status Note LastModified by Organization Details LastModified Time prednisone 20 mg tablet TAKE TWO TABLETS BY MOUTH DAILY with a meal for 5 days.* 09/21 completed Not Available Not Available Not Available sulfamethox azole 800 mg-trimetho prim 160 mg tablet TAKE 1 TABLET BY MOUTH TWICE DAILY 04/16 completed Not Available Not Available Not Available omeprazole 40 mg capsule,del ayed release TAKE ONE CAPSULE BY MOUTH TWICE DAILY BEFORE MEALS* active Not Available Not Available No t Available cephalexin 500 mg capsule Take 1 Capsule (500 mg) by mouth two times daily for 7 days* 01/25 completed Not Available Not Available Not Available triamcinolo ne acetonide 0.1 % topical ointment APPLY TOPICALLY TO THE AFFECTED AREA TWICE DAILY active Not Available Not Available No t Available omeprazole 20 mg capsule,del ayed release TAKE 1 CAPSULE BY MOUTH EVERY DAY active Not Available Not Available No t Available levofloxaci n 500 mg tablet TAKE ONE TABLET BY MOUTH EVERY 24 HOURS* 01/25 completed Not Available Not Available Not Available ipratropium bromide 21 mcg (0.03 %) nasal spray spray 2 sprays into each nostril once daily at bedtime.* active Not Available Not Available No t Available levothyroxi ne 112 mcg tablet TAKE ONE TABLET BY MOUTH ONE TIME DAILY BEFORE BREAKFAST * active Not Available Not Available No t Available oxycodone 5 mg tablet TAKE ONE TABLET BY MOUTH EVERY SIX HOURS NEEDED FOR PAIN* 09/21 completed Not Available Not Available Not Available solifenacin 10 mg tablet Take 1 tablet every day by oral route for 90 days. 2024 active Not Available Not Available Not Avai lable amlodipine active Not Available Not Av ailable Not Available gabapentin active Not Available Not Av ailable Not Available rosuvastati n active Not Available Not Available Not Available Gemtesa 75 mg tablet Take 1 tablet every day by oral route. active Not Available Not Available No t Available aspirin 81 mg capsule Take 1 capsule every day by oral route. active Not Available Not Available No t Available Ozempic 2 mg/dose (8 mg/3 mL) subcutaneou s pen injector INJECT 2MG SUB-EVERY ONCE WEEKLY active Not Available Not Available No t Available Vitals Date Recorded Body height Body mass index (BMI) Body weight Provider Name and Address Organization Details Last Updated DateTime 04/19/2025 160.02 cm 39.9 kg/m2 411585.28 g Nicole Meeks [facility] 04/19/2025 10:45:31 Social History Question Answer Notes LastModified by Simple Admit Details LastModified Time Tobacco Smoking Status [facility]24 10:05:23 What Is Your Level Of Caffeine Consumption? Occasional Information not available 09/21/2024 When Did You Quit Smoking? 18+yearssinhallie [email or web address] Information not available 09/21/2024 What Was The Date Of Your Most Recent Tobacco Screening? 04/19/2025 [email or web address] Information not available 04/19/2025 Have You Ever Been Counseled For Unhealthy Alcohol Use? No Information not available 09/21/2024 Has Tobacco Cessation Counseling Been Provided? No Information not available 09/21/2024 How Many Days In The Past Year Have You Consumed 4 Or More Drinks? 0 Information not available 09/21/2024 Sex: Unknown Functional Status Question Answer Note LastModified by Simple Admit Details LastModified Time Do you use any illicit or recreational drugs? No Information not available 09/21/2024 Do you or have you ever used any other forms of tobacco or nicotine? No Information not available 09/21/2024 What is your level of alcohol consumption? None Information not available 09/21/2024 Mental Status None recorded. Family History Relationship Description Onset Age of this Age Resolved Age Notes LastModified by Organization Details LastModified Time Father No current problems or disability [email or web address] Not available 09/21 10:04:46 Mother No current problems or disability [email or web address] Not available 09/21 10:04:46 Medical History Condition Response Diabetes N Sexually Transmitted Infection N Other N Bleeding Disorder N High Blood Pressure Y Kidney Stones N Cancer Y Lung Disease N Depression N High Cholesterol Y GERD/Acid Reflux N Heart Disease N Gynecological HistoryNo gynecological history recorded. Obstetrics History GPAL:G 0 P 0 0 0 0 Immunizations Vaccine Type Date Status Note Provider Nam e and Address Organization Details Recorded Time pneumococcal polysaccharide PPV23 9 completed Not Available [facility] 12/09/2019 00:42:27 Influenza, split virus, trivalent, preservative 3 completed Not Available [facility] 04/19/2025 10:40:53 Influenza, split virus, trivalent, preservative 5 completed Not Available [facility] 04/19/2025 10:40:53 Influenza, split virus, trivalent, preservative 6 completed Not Available [facility] 04/19/2025 10:40:53 Influenza, split virus, trivalent, preservative 7 completed Not Available [facility] 04/19/2025 10:40:53 Influenza, split virus, trivalent, preservative 8 completed Not Available [facility] 04/19/2025 10:40:53 Influenza, split virus, quadrivalent, PF 4 completed Not Available [facility] 04/19/2025 10:40:53 Tdap 5 completed Not Available [facility] 04/19/2025 10:40:53 Influenza, split virus, quadrivalent, PF 5 completed Not Available [facility] 04/19/2025 10:40:53 zoster live 6 completed Not Available [facility] 04/19/2025 10:40:53 Influenza, split virus, quadrivalent, PF 7 completed Not Available [facility] 04/19/2025 10:40:53 Pneumococcal conjugate PCV 13 8 completed Not Available [facility] 04/19/2025 10:40:53 zoster recombinant 8 completed Not Available [facility] 04/19/2025 10:40:53 Influenza, adjuvanted, trivalent, PF 8 completed Not Available [facility] 04/19/2025 10:40:53 zoster recombinant 8 completed [facility] Available [facility] 04/19/2025 10:40:53 Influenza, high-dose, trivalent, PF 9 completed Not Available [facility] 04/19/2025 10:40:53 Influenza, adjuvanted, quadrivalent, PF 0 completed Not Available [facility] 04/19/2025 10:40:53 COVID-19, mRNA, LNP-S, PF, 100 mcg/0.5mL dose or 50 mcg/0.25mL dose 1 completed Not Available [facility] 04/19/2025 10:40:53 COVID-19, mRNA, LNP-S, PF, 100 mcg/0.5mL dose or 50 mcg/0.25mL dose 1 completed Not Available [facility] 04/19/2025 10:40:53 Influenza, adjuvanted, quadrivalent, PF 1 completed Not Available [facility] 04/19/2025 10:40:53 Influenza, adjuvanted, quadrivalent, PF 2 completed Not Available [facility] 04/19/2025 10:40:53 Influenza, high-dose, quadrivalent, PF 3 completed Not Available [facility] 04/19/2025 10:40:53 Influenza, adjuvanted, trivalent, PF 4 completed Not Available [facility] 04/19/2025 10:40:53 Influenza, adjuvanted, trivalent, PF 5 completed Not Available [facility] 04/19/2025 10:40:53 Past Encounters Encounter ID Performer Location Encounter Start Date Encounter Closed Date Diagnosis/Indication Diagnosis SNOMED-CT Code Diagnosis ICD10 Code Diagnosis IMO Codes Diagnosis Note [id number] Rafat Herrera MD [facility] [address] [place] [address] 04/19/2025 10:37:04 04/20/2025 12:15:34 Overactive urinary bladder 704744078 N32.81 454503 Health Concerns Section Related Observation LastModified by Organization Detai ls LastModified Time None Recorded Concern Status LastModified by Organization Details LastModified Time None Recorded Payers Encounter Date Sequence Insurance Name Policy Number Policy Lambert Covered Member ID Lambert Member ID Guarantor Name 04/19/2025 1 [employer] - INDIVIDUAL AND FAMILY (HMO) [id number] Desiree Yris Breimhorst [id number] Desiree L Breimhorst Notes Date Note Type Note Provider Name and Address Organization Details Recorded Time 04/19/2025 text/html been taking gemtesa but not working well any more. PVR 31ml today, having more freq/urge and some leaking episodes. previously had interstim which worked well, but needed to remove for MRI in past. Rafat Herrera MD [address], [place], [address], [facility] 04/19/2025 10:55:41 OBGyn Episode No OBEpisode recorded.
--- OUTSIDE RECORDS SUMMARY | 2025-05-06 21:29 | XMS_ITS | Data Portability ---
Author Organization [place] [facility], [facility] Address [address] [place] [address] Care Team Providers Care Cryptologist Name Role Phone BUTCH VALDEZ Referring Provider [phone] Assessment No assessment recorded. Plan of Treatment Reminders Order Date Submit Date Provider Last Modified By Organization Details Last Modified Time Details Appointments [facility] 15 2025 01:15P James Ramey MD Not available Not available Not available Lab culture, urine + sensitiv ity - n/a 2024 025 [facility], [address] [facility] [place], [address], 11/06/2024 11:47:05 urinalys is, dipstick 2024 025 [email or web address] [facility], [address], [address], [place], [address], 11/02/2024 10:46:29 urinalys is, dipstick 2024 025 [email or web address] [facility], [address], [address], [place], [address], 09/21/2024 10:26:35 Referral None recorded . Procedures bladder scan (PROC) 2024 025 [email or web address] [facility], [address], [address], [place], [address], 04/19/2025 10:45:07 bladder scan (PROC) 2024 025 [email or web address] [facility], [address], [address], [place], [address], 01/25/2025 10:34:45 bladder scan (PROC) 2024 025 [email or web address] [facility], [address], [address], [place], [address], 11/02/2024 10:46:29 bladder scan (PROC) 2024 025 [email or web address] [facility], [address], [place], [address], 09/21/2024 10:26:35 Surgeries None recorded . Imaging None recorded . Medication Orders solifena paulo 10 mg tablet 2024 025 [facility] [place], [place], [id number], 04/19/2025 10:55:40 Patient TargetsNo targets recorded. Patient Instructions Encounter Date Encounter Id Patient Instructions Last Modified By Organization Details Last Modified Time 09/21/2024 [id number] will try gemtesa and see if that will help, otherwise will need to replace her interstim. rtc 6 weeks [email or web address] Not available 09/21/2024 10:26:34 11/02/2024 [id number] will send resolv e today and call with report, continue gemtesa and rtc 12 weeks. [email or web address] Not available 11/02/2024 10:56:24 01/25/2025 [id number] will continue on gemtesa and rtc 12 weeks [email or web address] Not available 01/25/2025 10:43:01 04/19/2025 [id number] will try her on solifenacin 10mg daily and recheck in 3 months. [email or web address] Not available 04/19/2025 10:53:44 Reason for Referral None Reported. Results Created Date Observation Date Name Description Value Unit Range Abnormal Flag Note LastModifiedBy Organization Detail LastModifiedTime 09/22/1909/21/2024 urina lysis , dipst ick Color-Status Yellow Not Available [address], [place], [address], 08/25/2024 09:06:51 09/22/19 25 09/21/2024 urina lysis , dipst ick Clarity-Stat us Clear Not Available [address], [place], [address], 08/25/2024 09:06:51 09/22/19 25 09/21/2024 urina lysis , dipst ick Sp Robards-Stat us 1.010 Not Available [address], [place], [address], 08/25/2024 09:06:51 09/22/19 25 09/21/2024 urina lysis , dipst ick pH-Status 7.0 Not Available [address], [place], [address], 08/25/2024 09:06:51 09/22/19 25 09/21/2024 urina lysis , dipst ick Nitrates-Sta tus negati ve Not Available [address], [place], [address], 08/25/2024 09:06:51 09/22/19 25 09/21/2024 urina lysis , dipst ick Blood-Status Negati ve Not Available [address], [place], [address], 08/25/2024 09:06:51 09/22/19 25 09/21/2024 urina lysis , dipst ick Leuko-Status Small Not Available [address], [place], [address], 08/25/2024 09:06:51 09/22/19 25 09/21/2024 urina lysis , dipst ick Specimen Type Voided Not Available [address], [place], [address], 08/25/2024 09:06:51 09/22/19 25 09/21/2024 bladd er scan (PROC ) Volume (in mL) 99 Not Available [address], [place], [address], 08/25/2024 09:06:55 11/03/19 25 11/02/2024 bladd er scan (PROC ) Volume (in mL) 39 Not Available [address], [place], [address], 10/08/2024 10:25:29 11/03/19 25 11/02/2024 urina lysis , dipst ick Color-Status Yellow Not Available [address], [place], [address], 11/02/2024 10:43:25 11/03/19 25 11/02/2024 urina lysis , dipst ick Clarity-Stat us Clear Not Available [address], [place], [address], 11/02/2024 10:43:25 11/03/19 25 11/02/2024 urina lysis , dipst ick Glucose-Stat us Negati ve Not Available [address], [place], [address], 11/02/2024 10:43:25 11/03/19 25 11/02/2024 urina lysis , dipst ick Bilirubin-St atus Negati ve Not Available [address], [place], [address], 11/02/2024 10:43:25 11/03/19 25 11/02/2024 urina lysis , dipst ick Ketones-Stat us Negati ve Not Available [address], [place], [address], 11/02/2024 10:43:25 11/03/19 25 11/02/2024 urina lysis , dipst ick Sp Robards-Stat us 1.010 Not Available [address], [place], [address], 11/02/2024 10:43:25 11/03/19 25 11/02/2024 urina lysis , dipst ick pH-Status 7.0 Not Available [address], [place], [address], 11/02/2024 10:43:25 11/03/19 25 11/02/2024 urina lysis , dipst ick Urobilinogen -Status 0.2 Not Available [address], [place], [address], 11/02/2024 10:43:25 11/03/19 25 11/02/2024 urina lysis , dipst ick Nitrates-Sta tus negati ve Not Available [address], [place], [address], 11/02/2024 10:43:25 11/03/19 25 11/02/2024 urina lysis , dipst ick Blood-Status Modera te Not Available [address] [place], [place], [address], 11/02/2024 10:43:25 11/03/19 25 11/02/2024 urina lysis , dipst ick Leuko-Status Small Not Available [address] [place], [place], [address], 11/02/2024 10:43:25 01/26/20 25 01/25/2025 bladd er scan (PROC ) Volume (in mL) 18 Not Available [address] [place], [place], [address], 01/21/2025 15:48:26 04/19/20 25 04/19/2025 bladd er scan (PROC ) Volume (in mL) 31 Not Available [address] [place], [place], [address], 04/07/2025 15:48:53 Result Notes None recorded. 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 Procedures Surgical History Date Name Laterality Status Provider Name and Address Organization Details Recorded Time 5 Bladder Scan completed Nciole Meeks [facility] 04/19/2025 10:45:01 5 Bladder Scan completed Moni Terry [facility] 01/25/2025 10:34:30 5 Bladder Scan completed Eriberto Shaver [facility] 11/02/2024 10:45:26 5 Bladder Scan completed Oscardusty Johnson [facility] 09/21/2024 10:07:13 Colonoscopy completed Vimaldianna Elizabeth [facility] 09/21/2024 10:06:45 Imaging Results None recorded. Procedure Notes None recorded. Medical Equipment None Reported. Allergies Allergen ID Allergen Name Allergen Category Reaction Reaction Severity Criticality Documentation Date Start Date Code Code System Note Provider Name and Address Organization Details Recorded Time 809559 duloxetin e medicatio n dizziness Not available Not available 09/21/20242017 10589 [facility] 10:[facility]05 975141 fluticaso ne / salmetero l medicatio n Not available Not available Not available 09/21/20242022 63098 5 RxNorm unrec ogniz ed react ion (text : Gingi vitis , code: [id number]) (from exter nal sourc e) Oscarethandianna Corleyjewel alyson [facility] 5 10:04:06 467278 mometason e furoate medicatio n rash Not available Not available 09/21/20242023 22435 RxNorm Burni ng and sting ing pain with appli catio n [facility] [place] [facility] 5 10:04:09 Medications Name Sig Start Date Stop [...] and Address Organization Details Last Updated DateTime 09/21/2024 160.02 cm 39.9 kg/m2 090222.28 tashia Johnson [facility] 09/21/2024 10:03:59 Date Recorded Body height Body mass index (BMI) Body weight Provider Name and Address Organization Details Last Updated DateTime 11/02/2024 160.02 cm 39.9 kg/m2 375404.28 tashia Joon Chhaya [facility] 11/02/2024 10:41:04 Date Recorded Body height Body mass index (BMI) Body weight Provider Name and Address Organization Details Last Updated DateTime 01/25/2025 160.02 cm 39.9 kg/m2 149766.[address] [facility] 01/25/2025 10:33:57 Date Recorded Body height Body mass index (BMI) Body weight Provider Name and Address Organization Details Last Updated DateTime 04/19/2025 160.02 cm 39.9 kg/m2 212023.28 tashia Nicole Meeks [facility] 04/19/2025 10:45:31 Social History Question Answer Notes LastModified by [employer] Details LastModified Time Tobacco Smoking Status Former Smoker Ferny Elizabeth shields [facility] 09/21/2024 10:05:23 What Is Your Level Of Caffeine Consumption? Occasional Information not available 09/21/2024 When Did You Quit Smoking? 16+yearsjethro [email or web address] Information not available 09/21/2024 What Was The Date Of Your Most Recent Tobacco Screening? 04/19/2025 [email or web address] Information not available 04/19/2025 Have You Ever Been Counseled For Unhealthy Alcohol Use? No Information not available 09/21/2024 Has Tobacco Cessation Counseling Been Provided? No Information not available 09/21/2024 How Many Days In The Past Year Have You Consumed 4 Or More Drinks? 0 [email or web address] Information not available 09/21/2024 Sex: Unknown Functional Status Question Answer Note LastModified by [employer] Details LastModified Time Do you use any [...] High Blood Pressure Y Kidney Stones N High Cholesterol Y GERD/Acid Reflux N Heart Disease N Cancer Y Lung Disease N Depression N Gynecological HistoryNo gynecological history recorded. Obstetrics History GPAL:G 0 P 0 0 0 0 Immunizations Vaccine Type Date Status Note Provider Nam e and Address Organization Details Recorded Time pneumococcal polysaccharide PPV23 9 completed Not Available [facility] 12/09/2019 00:42:27 Influenza, split virus, trivalent, preservative 3 completed Not Available [facility] 04/19/2025 10:40:53 Influenza, split virus, trivalent, preservative 5 completed Not Available [facility] 04/19/2025 10:40:53 Influenza, split virus, trivalent, preservative 6 completed Not Available [facility] 04/19/2025 10:40:53 Influenza, split virus, trivalent, preservative 7 completed Not Available [facility] 04/19/2025 10:40:53 Influenza, split virus, trivalent, preservative 8 completed Not Available [facility] 04/19/2025 10:40:53 Influenza, split virus, quadrivalent, PF 4 completed Not Available [facility] 04/19/2025 10:40:53 Tdap 5 completed Not Available [facility] 04/19/2025 10:40:53 Influenza, split virus, quadrivalent, PF 5 completed Not Available [facility] 04/19/2025 10:40:53 zoster live 6 completed Not Available [facility] 04/19/2025 10:40:53 Influenza, split virus, quadrivalent, PF 7 completed Not Available [facility] 04/19/2025 10:40:53 Pneumococcal conjugate PCV 13 8 completed Not Available [facility] 04/19/2025 10:40:53 zoster recombinant 8 completed Not Available [facility] 04/19/2025 10:40:53 Influenza, adjuvanted, trivalent, PF 8 completed Not Available [facility] 04/19/2025 10:40:53 zoster recombinant 8 completed Not Available [facility] 04/19/2025 10:40:53 Influenza, high-dose, trivalent, PF 9 completed Not Available [facility] 04/19/2025 10:40:53 Influenza, adjuvanted, quadrivalent, PF 0 completed Not Available [facility] 04/19/2025 10:40:53 COVID-19, mRNA, LNP-S, PF, 100 mcg/0.5mL dose or 50 mcg/0.25mL dose 1 completed Not Available [facility] 04/19/2025 10:40:53 COVID-19, mRNA, LNP-S, PF, 100 mcg/0.5mL dose or 50 mcg/0.25mL dose 1 completed Not Available [facility] 04/19/2025 10:40:53 Influenza, adjuvanted, quadrivalent, PF 1 completed Not Available [facility] 04/19/2025 10:40:53 Influenza, adjuvanted, quadrivalent, PF 2 completed Not Available [facility] 04/19/2025 10:40:53 Influenza, high-dose, quadrivalent, PF 3 completed Not Available [facility] 04/19/2025 10:40:53 Influenza, adjuvanted, trivalent, PF 4 completed Not Available [facility] 04/19/2025 10:40:53 Influenza, adjuvanted, trivalent, PF 5 completed Not Available [facility] 04/19/2025 10:40:53 Past Encounters Encounter ID Performer Location Encounter Start Date Encounter Closed Date Diagnosis/Indication Diagnosis SNOMED-CT Code Diagnosis ICD10 Code Diagnosis IMO Codes Diagnosis Note [id number] Rafat Herrera MD [address] [place] [address] 09/21/2024 09:49:58 09/22/2024 09:52:45 Urge incontinence of urine 77297885 N39.41 [id number] Rafat Herrera MD [address] [place] [address] 11/02/2024 10:15:55 11/03/2024 16:46:39 Overactive urinary bladder 427595339 N32.81 811258 Urinary tr act infectious disease 00032140 N39.0 Urge incon tinence of urine 71186445 N39.41 069390 [id number] Rafat Herrera MD [address] [address] 01/25/2025 10:09:27 01/26/2025 09:41:07 Overactive urinary bladder 407669226 N32.81 225021 [id number] Rafat Herrera MD [address] [address] 04/19/2025 10:37:04 04/20/2025 12:15:34 Overactive urinary bladder 704813040 N32.81 511044 Health Concerns Section Related Observation LastModified by Organization Detai ls LastModified Time None Recorded Concern Status LastModified by Organization Details LastModified Time None Recorded Advance Directives Directive None Recorded Payers Insurance Date Sequence Insurance Name Policy Number Policy Lambert Covered Member ID Lambert Member ID Guarantor Name 04/16/2025 1 [employer] - INDIVIDUAL AND FAMILY (HMO) [id number] Desiree L Breimhorst [id number] Desiree L Breimhorst Notes Date Note Type Note Provider Name and Address Organization Details Recorded Time 09/21/2024 text/html seeing for incontinence, had interstim device which worked well but had to be removed after a year due to need for MRI imaging and XRT. UA clear and PVR 99ml today. had tried a couple different meds for incontinence before the interstim placed. Interstim lead was on the right side. Rafat Herrera MD [address] [place] [address],[address], [place], [address], [facility] 09/21/2024 10:27:01 11/02/2024 text/html here for follow up gemtesa trial. notes some dysuria. UA with mod RBC, small leuks. PVR 39ml today. increased urgency since start gemtesa, but less urge incontinence. Rafat Herrera MD [address] [place] [address],[address], [place], [address], [facility] 11/02/2024 10:54:04 01/25/2025 text/html follow up OAb, taking gemtesa with good result. PVR 18ml today. Rafat Herrera MD [address] [place] [address],[address], [place], [address], [facility] 01/25/2025 10:43:14 04/19/2025 text/html been taking gemtesa but not working well any more. PVR 31ml today, having more freq/urge and some leaking episodes. previously had interstim which worked well, but needed to remove for MRI in past. Rafat Herrera MD [address] [place] [address],[address], [place], [address], [facility] 04/19/2025 10:55:41 OBGyn Episode No OBEpisode recorded.
[2025-05-06 21:36] VITALS: BP 95/63; PULSE 95; TEMP 36.3; O2SAT 94; BMI 39.3
--- NOTE | 2025-05-06 21:54 | ED.DIZZY ---
HPI - Dizziness General Date Seen: 05/06/25 Chief Complaint: Dizziness/Vertigo Stated Complaint: fall, hit head Time Seen by Provider: 05/06/25 21:54 Source: patient, RN notes reviewed and old records reviewed Mode of arrival: ambulatory Limitations: no limitations History of Present Illness HPI Narrative: Desiree is a very pleasant 74-year-old female with history of frequent UTI, asthma, hypothyroidism, type 2 diabetes, stage III quite disease currently on Ozempic who comes to the emergency room for evaluation regarding dizziness and a fall. Patient notes over the past few days she has had episodes of lightheadedness. She has had vertigo in the past and she denies any spinning sensation with what she has been experiencing. She was actually seen in the clinic today after having had episodes overnight last night and today of feeling very chilled shaking and teeth chattering as well as low back pain. She had thrown up twice yesterday. She had also complained of some mild dysuria but no evidence of hematuria fever or urgency. She had headache occasional cough as well. In the clinic they were able to do labs but unfortunately they will not have access to those results on till FridayMay 09. Patient was started on antibiotic Bactrim. Unfortunately tonight she was sitting on the toilet felt dizzy fell forward hitting the right parietal scalp in the tub. She did not lose consciousness. She notes that she just is not feeling well. Patient's notes that she has not been herself. States that she was trying to grab something off of the counter earlier and was continually missing it. Related Data Home Medications ?Medication ?Instructions ?Recorded ?Confirmed amlodipine 5 mg tablet 5 mg PO DAILY 12/10/22 05/06/25 fluticasone 250 mcg-salmeterol 50 1 ea inhalation BID 12/10/22 05/06/25 mcg/dose blistr powdr for inhalation gabapentin 300 mg capsule 300 mg PO HS PRN 12/10/22 05/06/25 losartan 50 mg tablet 50 mg PO DAILY 12/10/22 05/06/25 rosuvastatin 10 mg tablet 10 mg PO HS 12/10/22 05/06/25 semaglutide 2 mg/dose (8 mg/3 mL) 2 mg subcut .weekly 12/10/22 05/06/25 subcutaneous pen injector (Ozempic) albuterol sulfate 90 mcg/actuation 2 inh inhalation Q4H PRN 12/11/22 05/06/25 aerosol inhaler aspirin 81 mg tablet,delayed 81 mg PO DAILY 12/11/22 05/06/25 release (Ecotrin Low Strength) omeprazole 20 mg capsule,delayed 20 mg PO DAILY 12/11/22 05/06/25 release levothyroxine 125 mcg tablet 125 mcg PO DAILY 01/28/24 05/06/25 Allergies Allergy/AdvReac Type Severity Reaction Status Date / Time duloxetine (From Cymbalta) AdvReac Severe Dizziness Verified 05/06/25 21:45 Review of Systems Status of ROS: Reports: 10 or more systems reviewed and unremarkable except as noted in History and below Const: Reports: chills and fatigue; Denies: fever Eyes: Denies: change in vision ENMT: Reports: other (Vaccinated for flu but not COVID); Denies: throat pain, neck pain, vertigo or nasal congestion Cardio: Reports: lightheadedness; Denies: swelling of feet/ankles or shortness of breath with exertion Resp: Reports: cough (Occasional over the past few days); Denies: shortness of breath GI: Reports: nausea and vomiting; Denies: abdominal pain or diarrhea : Reports: painful urination and urinary frequency; Denies: blood in urine Musculo: Reports: back pain (But not this evening); Denies: neck pain Neuro: Reports: headache, weakness in extremities, lack of coordination, dizziness and confusion; Denies: numbness in extremities or vertigo Endo: Reports: fatigue [facility] Medical History Diverticulosis ?K57.90 - Diverticulosis of intestine, part unspecified, without perforation or abscess without bleeding (ICD-10) Colitis ?K52.9 - Noninfective gastroenteritis and colitis, unspecified (ICD-10) Back esophagus ?K22.70 - Back's esophagus without dysplasia (ICD-10) Overactive bladder ?N32.81 - Overactive bladder (ICD-10) Non-insulin dependent type 2 diabetes mellitus ?E11.9 - Type 2 diabetes mellitus without complications (ICD-10) Hypertension ?I10 - Essential (primary) hypertension (ICD-10) Hyperlipidemia ?E78.5 - Hyperlipidemia, unspecified (ICD-10) SUPA on CPAP ?G47.33 - Obstructive sleep apnea (adult) (pediatric) (ICD-10) Endometrial cancer ?C54.1 - Malignant neoplasm of endometrium (ICD-10) Surgical History History of arthroscopy of right knee (03/24/03) ?Z98.890 - Other specified postprocedural states (ICD-10) History of arthroscopy of right shoulder (06/29/03) ?Z98.890 - Other specified postprocedural states (ICD-10) History of total right knee replacement (02/23/15) ?Z96.651 - Presence of right artificial knee joint (ICD-10) History of total left knee replacement (05/25/15) ?Z96.652 - Presence of left artificial knee joint (ICD-10) History of total abdominal hysterectomy ?Z90.710 - Acquired absence of both cervix and uterus (ICD-10) H/O dilation and curettage ?Z98.890 - Other specified postprocedural states (ICD-10) Social History Narrative: Lives with Tin (MDM if needed) in [place]. 3 adult children. 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 Quit smoking prior to 1999. No ETOH. Full Code. What is your current living situation?: I presently have a place to live Problems where you live: no known problems Problems where you live details: NA In the past 12 months, utilities in danger of being shut off: no In past 12 months, lack of transportation kept you from medical appts, meetings, work, or getting things needed for daily living: no In the past 12 mos, have been you worried that your food would run out before you had money to buy more?: never true In the past 12 mos, the food you bought just didn't last and you didn't have money to buy more?: never true Highest level of school completed/degree received: Associate degree: occupational, technical, vocational program Smoking Status: Former smoker What tobacco products do you use: cigarettes Smoking quit date/years: >15 years ago Do you use any of these nicotine containing products: None Second hand tobacco smoke exposure: No How often do you have a drink containing alcohol: never How often do you have six or more drinks on one occasion: Never AUDIT-C Alcohol total score: 0 Non-prescribed substance use: denies use Caffeine: Yes How often does anyone, including family, friends and others, physically hurt you: never How often does anyone, including family, friends and others, insult or talk down to you: never How often does anyone, including family, friends and others, threaten you with harm: never How often does anyone, including family, friends and others, scream or curse at you: never service: No Exam Narrative: Exam Narrative: Awake and oriented. External ears eyes nose clear patient has a soft tissue swelling over the right parietal scalp. Some superficial abrasion on the scalp but no laceration. Neck is supple. She has no significant midline cervical tenderness. Does describe some discomfort and a snapping feeling but this has been chronic for her. Heart with a regular rate and rhythm. Lungs are clear bilaterally. Abdomen is soft nontender. No CVA tenderness with percussion. Moving all extremities. Const: Vital Signs, click to edit/add: Vital Signs - 24 hr 05/06/25 21:36 05/06/25 23:09 05/07/25 00:09 Temperature 97.3 F L Pulse Rate 85 82 Pulse Rate [Pulse Oximeter] 95 Respiratory Rate 16 16 Blood Pressure 120/53 L 113/55 L Blood Pressure [Ri ght Upper Arm] 95/63 Pulse Oximetry 94 91 94 Oxygen Delivery Me thod Room Air Nasal Cannula Room Air Oxygen Flow Rate 2 Documenting provider has reviewed patient's vital signs: yes Course Course ED Course: Differential diagnosis includes but is not limited to sepsis, UTI, pyelonephritis, colitis, influenza, COVID, concussion. At this time patient is noted to have dizziness not vertigo over the past few days in associations some with some mild urinary symptoms. She started having shaking chills and some back pain yesterday. She does not have back pain tonight. She did start treatment with Bactrim. Unfortunately she has had many UTIs per her report. UA was suspicious for UTI today and she did start Bactrim. I suspect that this patient is actually mild sepsis with some hypotension and elevated heart rate at 95 but is partially treated and that is why we are not seeing fever. A chest x-ray done at the clinic today did not show any evidence of pneumonia and lung sounds are clear. Patient does report occasional cough. Triple viral swab is pending. Blood cultures, CBC, CRP, comprehensive panel, lactate, urinalysis are all pending at this time. Will give patient 1 g of IV Rocephin and 1 L of normal saline as I strongly suspect urinary source. In regards to the fall given patient's age will obtain CT of the head. Even though she has no acute neck symptoms she does have some very subtle confusion and distracting discomfort and therefore I have also ordered cervical spine CT. Reevaluation(s) Reevaluation #1: Patient noted to be improved after fluids. also thinks that the confusion has cleared as well. Vital Signs Vital signs: Initial Vital Signs Temperature 97.3 F L 05/06/25 21:36 Temperature Source Temporal Artery Scan 05/06/25 21:36 Pulse Rate 95 05/06/25 21:36 Blood Pressure 95/63 05/06/25 21:36 Blood Pressure Mean 73 05/06/25 21:36 Pulse Oximetry 94 05/06/25 21:36 Oxygen Delivery Method Room Air 05/06/25 21:36 Vital Signs Temperature 97.3 F L 05/06/25 21:36 Pulse Rate 95 05/06/25 21:36 Blood Pressure 95/63 05/06/25 21:36 Pulse Oximetry 94 05/06/25 21:36 Oxygen Delivery Method Room Air 05/06/25 21:36 Temperature 97.3 F L 05/06/25 21:36 Pulse Rate 82 05/07/25 00:09 Respiratory Rate 16 05/07/25 00:09 Blood Pressure 113/55 L 05/07/25 00:09 Pulse Oximetry 94 05/07/25 00:09 Oxygen Delivery Method Room Air 05/07/25 00:09 Oxygen Flow Rate 2 05/06/25 23:09 Medications Administered Medications: Discontinued Medications Generic Name Dose Route Start Last Admin Trade Name Freq PRN Reason Stop Dose Admin Sodium Chloride 1,000 mls @ 1,000 mls/hr 05/06/25 23:06 05/07/25 00:07 0.9 % Sodium Chloride 1000 Ml IV 05/07/25 00:05 1,000 mls/hr .Q1H RENEE Administration Ceftriaxone Sodium 1 gm/ 100 mls @ 200 mls/hr 05/06/25 23:06 05/07/25 00:38 Sodium Chloride IVPB 05/06/25 23:07 Infused ONCE ONE Infusion MDM - Dizziness MDM Narrative Medical decision making narrative: 1. Sepsis-patient has mild hypotension elevation of pulse to 95 and source of infection. Her white count is mildly elevated at 11.5 and her CRP is elevated at 32. Her lactate is negative. Blood cultures were drawn. She does not truly meet criteria for severe sepsis but I do believe she is septic given the borderline confusion and her presentation here today. Patient is given 1 L of normal saline the trauma Rocephin 1 g IV for urinary source. Patient had no evidence of pneumonia [facility] earlier today. She is triple swab negative. Abdominal CT pending. I did have to do this without contrast given the elevated creatinine. : Patient noted to have left-sided pyelonephritis on CT. Questionable abscess. Ultrasound was ordered for tomorrow morning. 3 L of normal saline ordered in total. 2. Acute kidney injury-creatinine elevated to 1.9. Patient was started on Bactrim today but only took 1 dose so I believe this was likely pre-existing. Previous creatinine 1.1 in 2022. Fluids are being given at this time. 3. Hypo natremia mild at 0130. 4. Hypokalemia-mild at 3.0. Will give oral replacement 50 mEq. 5. Disposition- admit inpatient under the care of [facility] physician, Dr Llanos. Medical Records Attestation: I reviewed the patient's medical records. Medical records narrative: From [facility] today. Lab Data Attestation: I reviewed the patient's lab results. Labs: Lab Results 05/06/25 05/06/25 05/06/25 Range/Units 23:00 23:01 23:13 WBC 11.50 H (4.50-11.00) K/uL RBC 3.86 L (4.00-5.20) m/uL Hgb 12.1 (12.0-16.0) gm/dL Hct 35.8 (33.0-51.0) % MCV 93 (80-100) fL MCH 31 (26-34) pg MCHC 34 (32-36) gm/dL RDW Coeff of [place]er 12.9 (11.5-15.5) % Plt Count 131 L (140-440) K/uL Neut % (Auto) 85.2 H (42.0-72.0) % Lymph % (Auto) 4.0 L (20-44) % [place]yer % (Auto) 9.1 (0.0-11.0) % Eos % (Auto) 0.1 (0.0-7.0) % Baso % (Auto) 0.1 (0.0-3.0) % Neut # (Auto) 9.80 H (1.7-7.0) K/uL Lymph # (Auto) 0.50 L (0.90-2.90) K/uL Sawyer # (Auto) 1.00 H (0.00-0.90) K/UL Eos # (Auto) 0.00 (0.00-0.50) K/uL Baso # (Auto) 0.00 (0.00-0.30) K/uL Abs Immat Gran (auto) 0.20 (0.00-0.30) K/uL Imm/Tot Granulo (auto) 1.5 % Sodium 130 L (135-149) mmol/L Potassium 3.3 L (3.6-5.1) mmol/L Chloride 97 (96-114) mmol/L Carbon Dioxide 20 (20-32) mmol/L Anion Gap 13 (7-15) mEq/L BUN 29 (7-30) mg/dL Creatinine 1.9 H (0.5-1.5) mg/dL Estimated Creat Clear 21.17 Estimated GFR 28 ml/min Glucose 169 H (60-115) mg/dL Lactate 1.1 (0.5-1.9) mmol/L Calcium 8.2 L (8.4-10.6) mg/dL Total Bilirubin 1.1 (0.1-1.5) mg/dL AST 22 (12-35) U/L ALT 15 (4-35) U/L Alkaline Phosphatase 65 (40-150) U/L C-Reactive Protein 32.0 H (0.5-1.0) mg/dL Total Protein 6.1 (6.0-8.3) g/dL Albumin 3.4 (3.3-5.0) g/dL Urine Color Yellow (Yellow) Urine Appearance Slightly Cloudy A (Clear) Urine pH 5.0 (5.0-8.5) Ur Specific [place] 1.015 (1.000-1.030) Urine Protein 3+ A (Negative) Urine Glucose (UA) Negative (Negative) Urine Ketones Trace A (Negative) Urine Blood 1+ A (Negative) Urine Nitrite Negative (Negative) Urine Bilirubin 1+ A (Negative) Urine Urobilinogen 1.0 (0.2-1.0) Ur Leukocyte Esterase 2+ A (Negative) Urine RBC 2-5 A (0-2) Urine WBC 10-25 A (0-5) Ur Squamous Epith Cells None (None-Few) Urine Bacteria Moderate A (None) SARS-CoV-2 (PCR) Negative SARS-CoV-2 (Negative) Influenza Type A (PCR) Negative PCR FLU A (Negative) Influenza Type B (PCR) Negative PCR FLU B (Negative) Imaging Data CT scan - head: Attestation: I have reviewed the pertinent imaging results. My impression: I do not note any intracranial bleed. Radiologist's impression: Vertebrae: No acute fracture or suspicious bone lesion. Vertebral bodies are normally aligned. Straightening of the normal cervical lordosis. Discs and facet joints: Multilevel facet arthropathy and mild endplate spurring. Disc spaces are maintained. No significant spinal canal stenosis. Extraspinal findings: Visualized intracranial contents and paravertebral soft tissues are unremarkable. IMPRESSION: 1. No acute fracture or traumatic malalignment of the cervical spine. 2. Mild multilevel degenerative spondylosis. Cervical spine x-ray: Attestation: I have reviewed the pertinent imaging results. My impression: No obvious fracture by my read. Radiologist's impression: Vertebrae: No acute fracture or suspicious bone lesion. Vertebral bodies are normally aligned. Straightening of the normal cervical lordosis. Discs and facet joints: Multilevel facet arthropathy and mild endplate spurring. Disc spaces are maintained. No significant spinal canal stenosis. Extraspinal findings: Visualized intracranial contents and paravertebral soft tissues are unremarkable. IMPRESSION: 1. No acute fracture or traumatic malalignment of the cervical spine. 2. Mild multilevel degenerative spondylosis. CT scan - abdomen: Attestation: I have reviewed the pertinent imaging results. Radiologist's impression: Lower chest: Unremarkable. Liver: Normal in size and attenuation. No suspicious masses. Gallbladder and bile ducts: No stones or inflammation. No biliary dilatation. Pancreas: Unremarkable. No mass or inflammation. Spleen: Normal in size. No masses. Adrenal glands: Normal in size. No nodules. Kidneys: Asymmetric moderate perinephric inflammatory stranding and enlargement of the left kidney without hydronephrosis or obstructing lesion identified. Area of rounded fullness within the superior pole (2/54), incompletely evaluated due to lack of IV contrast. GI tract: Small hiatal hernia. Diverticulosis without pericolonic inflammation. No obstruction. Normal appendix. Vasculature: Normal caliber abdominal aorta with mild atherosclerotic calcification. Lymph nodes: No lymphadenopathy. Peritoneum/Abdominal Wall: Unremarkable. No free air or significant free fluid. Pelvis: Status post hysterectomy. Bones: Unremarkable for age. IMPRESSION: 1. Findings compatible with left-sided pyelonephritis. Incompletely evaluated rounded area of fullness within the left kidney superior pole. While this could be a normal variant prominent medullary pyramid, a renal abscess cannot be entirely excluded. Consider ultrasound for further evaluation. 2. Colonic diverticulosis without evidence for acute diverticulitis. Critical Care Time Critical Care Time Critical Care Time: Yes Attestation: The patient required my highest level preparedness to intervene emergently and I personally spent this critical care time directly and personally managing the patient. This critical care time included: Obtaining a history; Examining the patient; Pulse oximetry; Ordering and reviewing of studies; Arranging urgent treatment with development of a management plan; Evaluation of patients response to treatment; Frequent reassessment discussions with other providers. This critical care time was performed to assess and manage the high probability of imminent life-threatening deterioration that could result in multiorgan failure. It was exclusive of separate billable procedures and treating other patients and teaching time. Total Critical Care Time in Minutes: 30 Discharge Plan Discharge Clinical Impression: Acute pyelonephritis, Acute hyponatremia, Acute hypokalemia, Acute kidney injury Sepsis Qualifiers: Sepsis type: sepsis due to unspecified organism Sepsis acute organ dysfunction status: without acute organ dysfunction Qualified Code(s): A41.9 - Sepsis, unspecified organism Patient Disposition: Admitted As Inpatient Condition: Improved
--- NOTE | 2025-05-06 22:02 | CRLHL7_ITS ---
For Patients: As a result of the Century Cures Act, medical imaging exams and procedure reports are released immediately into your electronic medical record. You may view this report before your referring provider. If you have questions, please contact your health care provider. INDICATION: Fall, dizziness, vertigo. COMPARISON: None. TECHNIQUE: CT of the cervical spine without IV contrast. Coronal and sagittal reconstructions. FINDINGS: Vertebrae: No acute fracture or suspicious bone lesion. Vertebral bodies are normally aligned. Straightening of the normal cervical lordosis. Discs and facet joints: Multilevel facet arthropathy and mild endplate spurring. Disc spaces are maintained. No significant spinal canal stenosis. Extraspinal findings: Visualized intracranial contents and paravertebral soft tissues are unremarkable. IMPRESSION: 1. No acute fracture or traumatic malalignment of the cervical spine. 2. Mild multilevel degenerative spondylosis. Please note that all CT scans at this facility use dose modulation, iterative reconstruction, and/or weight-based dosing when appropriate to reduce radiation dose to as low as reasonably achievable. Dictated by Stephanie Gzuman MD @ 05/06/2025 11:30:02 PM (Electronically Signed)
--- NOTE | 2025-05-06 22:02 | CRLHL7_ITS ---
For Patients: As a result of the Cures Act, medical imaging exams and procedure reports are released immediately into your electronic medical record. You may view this report before your referring provider. If you have questions, please contact your health care provider. INDICATION: Fall, dizziness, vertigo. COMPARISON: None. TECHNIQUE: CT of the head without IV contrast. Coronal and sagittal reconstructions. FINDINGS: Brain: No intracranial hemorrhage, abnormal extra-axial fluid collection, or evidence of acute infarct. No mass effect or midline shift. Ventricular caliber is within normal limits. Skull base and calvarium: There is a possible fracture line through the inferior wall of the left maxillary sinus (series 3 image 2). Polypoid mucosal thickening and tiny air-fluid level in left maxillary sinus. Opacification of a few bilateral mastoid air cells. The visualized orbits are grossly unremarkable. No acute fracture identified. Soft tissues: Mild soft tissue swelling in the right lateral vertex scalp. Nonspecific coarse calcifications in the left parotid gland. IMPRESSION: 1. No acute intracranial findings. 2. Mild soft tissue swelling in the right lateral vertex scalp. 3. Mucosal thickening and air-fluid level in the left maxillary sinus suggesting acute sinusitis. 4. Possible fracture line through the inferior wall of the left maxillary sinus of uncertain chronicity. Correlate clinically for any signs of trauma in this region. Please note that all CT scans at this facility use dose modulation, iterative reconstruction, and/or weight-based dosing when appropriate to reduce radiation dose to as low as reasonably achievable. Dictated by Stephanie Guzman MD @ 05/06/2025 11:25:26 PM (Electronically Signed)
--- OUTSIDE RECORDS SUMMARY | 2025-05-06 22:16 | XMS_ITS | Patient Health Record ---
Author Organization [facility] Address [address] [place] [address] Care Team Providers Care Academic Department Chair Name Role Phone Zoë Orourke Primary Care Provider SANIYA Arias Unavailable [phone] Needed, Needed Unavailable Unavailable Allergies Allergen (clinical drug ingredient) Drug/Non Drug Allergy documented on EMR Reaction Allergy Type Onset Date Status duloxetine Cymbalta Unknown Drug Allergy Active Reason For Referral No Information Medications Medication SIG (Take, Route, Frequency, Duration) Notes Start Date End Date Status amLODIPine Besylate 5 MG Tablet Oral; Duration: 90 Active Losartan Potassium 50 MG Tablet Oral; Duration: 90 Active Clobetasol Propionate 0.05 % Ointment External; Duration: 30 Activ e Rosuvastatin Calcium 10 MG Tablet Oral; Duration: 90 Active Ozempic (0.25 or 0.5 MG/DOSE) 2 MG/1.5ML Solution Pen-injector INJECT 0.5MG SUBCUTANEOUS ONCE WEEKLY Diagnosis Unavailable Subcutaneous; Duration: 28 Active Levothyroxine Sodium 150 MCG Tablet Oral; Duration: 90 Active valACYclovir HCl 1 GM Tablet Oral; Duration: 10 Active Social History Tobacco Use: Social History Observation Description Date Details (start date - stop date) Former Smoker NA - NA Social History Alcohol Use: Social Info Question Answer Notes Recreational drugs Have you used drugs other than those for medical reasons in the past 12 months? No Alcohol Screen Did you have a drink containing alcohol in the past year? No Points 0 Interpretation Negative Tobacco Use: Social Info Question Answer Notes Tobacco use/smoking Are you a former smoker Problems Problem Type SNOMED Code ICD Code Onset Dates Problem Status W/U Status Risk Notes Problem Localized swelling, mass and lump, neck (R22.1) Active confirmed Problem Parotid cyst ([id number]) Parotid cyst (K11.6) Active confirmed Problem Abnormal positron emission tomography (PET) scan of head (R94.02) Active confirmed Plan Of Treatment No Information Insurance Providers Payer Name Payer Address Payer Phone Subscriber Number Group Number Insured Name Patient Relationship to Insured Coverage Start Date Coverage End Date [employer] [address] [address] [place], [place] [id number] [facility] Self - patient is the insured 1 Medical (General) History Medical History History ICD Code Endometrial carcinoma Grade 2 Sleep apnea Easy Bleeding/ Bruising Anesthesia problems Moderna COVID-19 Vaccine: 09/21/2020 Surgical History Surgery Date(Month/Year) bilateral knee replacement Stent placement and removal Hysteroscopy D & C 10/27/2020 Complete Hysterectomy 12/21/2020
[2025-05-06 23:09] VITALS: BP 120/53; PULSE 85; RESP 16; O2SAT 91
[2025-05-06 23:16] LABS: Appearance Urine Slightly Cloudy (Clear)
[2025-05-06 23:18] LABS: Lactate* 1.1 mmol/L (0.5-1.9)
[2025-05-06 23:23] LABS: Hematocrit* 35.8 % (33.0-51.0); Hemoglobin* 12.1 gm/dL (12.0-16.0); Immature Granulocytes Pct Auto 1.5 %; Mean Corpuscular HGB Conc 34 gm/dL (32-36); Mean Corpuscular Hemoglobin 31 pg (26-34); Mean Corpuscular Volume 93 fL (80-100); RDW Coefficient of Variation % 12.9 % (11.5-15.5); Red Blood Count* 3.86 m/uL (4.00-5.20); White Blood Count* 11.50 K/uL (4.50-11.00)
[2025-05-06 23:24] LABS: Immature Granulocytes Abs Auto 0.20 K/uL (0.00-0.30); Lymphocytes Absolute Auto 0.50 K/uL (0.90-2.90); Slide Review Reflex No
--- NOTE | 2025-05-06 23:33 | CRLHL7_ITS ---
For Patients: As a result of the Century Cures Act, medical imaging exams and procedure reports are released immediately into your electronic medical record. You may view this report before your referring provider. If you have questions, please contact your health care provider. INDICATION: Pyelonephritis. TECHNIQUE: CT abdomen and pelvis without contrast. COMPARISON: CT abdomen and pelvis 12/09/2022. FINDINGS: Lower chest: Unremarkable. Liver: Normal in size and attenuation. No suspicious masses. Gallbladder and bile ducts: No stones or inflammation. No biliary dilatation. Pancreas: Unremarkable. No mass or inflammation. Spleen: Normal in size. No masses. Adrenal glands: Normal in size. No nodules. Kidneys: Asymmetric moderate perinephric inflammatory stranding and enlargement of the left kidney without hydronephrosis or obstructing lesion identified. Area of rounded fullness within the superior pole (2/54), incompletely evaluated due to lack of IV contrast. GI tract: Small hiatal hernia. Diverticulosis without pericolonic inflammation. No obstruction. Normal appendix. Vasculature: Normal caliber abdominal aorta with mild atherosclerotic calcification. Lymph nodes: No lymphadenopathy. Peritoneum/Abdominal Wall: Unremarkable. No free air or significant free fluid. Pelvis: Status post hysterectomy. Bones: Unremarkable for age. IMPRESSION: 1. Findings compatible with left-sided pyelonephritis. Incompletely evaluated rounded area of fullness within the left kidney superior pole. While this could be a normal variant prominent medullary pyramid, a renal abscess cannot be entirely excluded. Consider ultrasound for further evaluation. 2. Colonic diverticulosis without evidence for acute diverticulitis. Please note that all CT scans at this facility use dose modulation, iterative reconstruction, and/or weight-based dosing when appropriate to reduce radiation dose to as low as reasonably achievable. Dictated by Don Reynolds MD @ 05/07/2025 12:23:54 AM (Electronically Signed)
[2025-05-06 23:35] LABS: Albumin* 3.4 g/dL (3.3-5.0); Chloride* 97 mmol/L (96-114); Potassium* 3.3 mmol/L (3.6-5.1); Sodium* 130 mmol/L (135-149)
[2025-05-06 23:37] LABS: Blood Urea Nitrogen* 29 mg/dL (7-30); Creatinine* 1.9 mg/dL (0.5-1.5); Est. Creatinine Clearance* 21.17; Estimated Glomerular Filt Rate 28 ml/min
[2025-05-06 23:38] LABS: Alanine Aminotransferase* 15 U/L (4-35); Alkaline Phosphatase* 65 U/L (40-150); Anion Gap 13 mEq/L (7-15); Aspartate Amino Transferase* 22 U/L (12-35); Bilirubin Total* 1.1 mg/dL (0.1-1.5); Calcium* 8.2 mg/dL (8.4-10.6); Carbon Dioxide* 20 mmol/L (20-32); Glucose* 169 mg/dL (60-115); Total Protein* 6.1 g/dL (6.0-8.3)
[2025-05-06 23:57] LABS: PCR FLU A Negative PCR FLU A (Negative); PCR FLU B Negative PCR FLU B (Negative); SARS PCR* Negative SARS-CoV-2 (Negative)
[2025-05-07] VITALS (20 sets, daily range): BP systolic 113–161; BP diastolic 36–89; PULSE 75–97; RESP 16–20; TEMP 36.9–39.5; O2SAT 94–97
[2025-05-07] MEDS: cefTRIAXone 1 GM in 0.9 % SODIUM CHLORIDE Mini-bag 100 ML IVPB ×3 (00:06→23:25)
--- NOTE | 2025-05-07 00:49 | CRLHL7_ITS ---
For Patients: As a result of the Century Cures Act, medical imaging exams and procedure reports are released immediately into your electronic medical record. You may view this report before your referring provider. If you have questions, please contact your health care provider. INDICATION: Pyelonephritis TECHNIQUE: Ultrasound renal and bladder complete. Tobin-scale and color Doppler sonographic images were acquired of the kidneys and urinary bladder. COMPARISON: Same day CT abdomen pelvis FINDINGS: Right kidney: 10.3 x 4.5 x 5.3 cm. Normal echotexture and cortex. No suspicious masses, stones, or hydronephrosis. Left kidney: 11.1 x 6.3 x 6.1 cm. Anechoic avascular lesion in the left superior pole measuring 3.5 x 4.2 x 2.9 cm. Normal echotexture and cortex. No suspicious masses, stones, or hydronephrosis. Bladder: Normal in caliber and appearance. No ureteral jets are appreciated IMPRESSION: Anechoic lesion in the left superior renal pole measuring up to 3.5 cm is most compatible with a cyst. The bilateral kidneys are otherwise unremarkable. No ureteral jets appreciated, the bladder is otherwise unremarkable Dictated by Fabienne Willis MD @ 05/07/2025 8:08:31 AM (Electronically Signed)
[2025-05-07] MEDS: POTASSIUM BICARB 25 MEQ EFFERVESCENT TAB 50 MEQ PO (01:29)
--- NOTE | 2025-05-07 03:48 | W.PM.TELEH&P ---
Telehealth- H&P: HPI History of Present Illness Date Seen: 05/07/25 Chief complaint: fall, hit head Narrative: Desiree Fitzpatrick is seen as an Interactive Telehealth visit. Desiree Fitzpatrick is a 74-year-old woman with type 2 diabetes had stage III chronic kidney disease. She has been having recurrent urinary tract infections since this past spring. She does see a urologist and it sounds like he has been treating her for urge incontinence. Yesterday the patient fell at home due to dizziness and hit her head. She has been dizzy and lightheaded for a few days. On the day of admission she also had shaking chills and some low back pain. She vomited a couple of times. She has had dysuria. No blood in her urine. In the emergency room her initial blood pressure was 95/60 3 repeat 120/53. Normal temperature other via both signs stable. Her exam was unremarkable. She had no suprapubic or CVA tenderness. Labs showed white count 11.5 thousand platelets 131,000 sodium 130 potassium 3.3 creatinine 1.9 lactate 1.1. Respiratory panel negative. UA showed 2-5 red cells 10-25 white cells 2+ leukocyte esterase moderate bacteria. CT of the head was negative. Cervical spine x-ray negative for acute fracture or dislocation. CT of the abdomen showed inflammation around the left kidney consistent with pyelonephritis. The study was done without contrast and renal abscess could not be completely excluded. The patient received 1 g of IV ceftriaxone and 1 L of normal saline. She is being admitted for further treatment. Review of Systems Status of ROS: Reports: 10 or more systems reviewed and unremarkable except as noted in History and below [facility] Medical History Diverticulosis ?K57.90 - Diverticulosis of intestine, part unspecified, without perforation or abscess without bleeding (ICD-10) Colitis ?K52.9 - Noninfective gastroenteritis and colitis, unspecified (ICD-10) Back esophagus ?K22.70 - Back's esophagus without dysplasia (ICD-10) Overactive bladder ?N32.81 - Overactive bladder (ICD-10) Non-insulin dependent type 2 diabetes mellitus ?E11.9 - Type 2 diabetes mellitus without complications (ICD-10) Hypertension ?I10 - Essential (primary) hypertension (ICD-10) Hyperlipidemia ?E78.5 - Hyperlipidemia, unspecified (ICD-10) SUPA on CPAP ?G47.33 - Obstructive sleep apnea (adult) (pediatric) (ICD-10) Endometrial cancer ?C54.1 - Malignant neoplasm of endometrium (ICD-10) Surgical History History of arthroscopy of right knee (03/24/03) ?Z98.890 - Other specified postprocedural states (ICD-10) History of arthroscopy of right shoulder (06/29/03) ?Z98.890 - Other specified postprocedural states (ICD-10) History of total right knee replacement (02/23/15) ?Z96.651 - Presence of right artificial knee joint (ICD-10) History of total left knee replacement (05/25/15) ?Z96.652 - Presence of left artificial knee joint (ICD-10) History of total abdominal hysterectomy ?Z90.710 - Acquired absence of both cervix and uterus (ICD-10) H/O dilation and curettage ?Z98.890 - Other specified postprocedural states (ICD-10) Social History Narrative: Lives with Tin (MDM if needed) in [place]. 3 adult children. 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 Quit smoking prior to 1999. No ETOH. Full Code. What is your current living situation?: I presently have a place to live Problems where you live: no known problems Problems where you live details: NA In the past 12 months, utilities in danger of being shut off: no In past 12 months, lack of transportation kept you from medical appts, meetings, work, or getting things needed for daily living: no In the past 12 mos, have been you worried that your food would run out before you had money to buy more?: never true In the past 12 mos, the food you bought just didn't last and you didn't have money to buy more?: never true Highest level of school completed/degree received: Associate degree: occupational, technical, vocational program Smoking Status: Former smoker What tobacco products do you use: cigarettes Smoking quit date/years: >15 years ago Do you use any of these nicotine containing products: None Second hand tobacco smoke exposure: No How often do you have a drink containing alcohol: never How often do you have six or more drinks on one occasion: Never AUDIT-C Alcohol total score: 0 Non-prescribed substance use: denies use Caffeine: Yes How often does anyone, including family, friends and others, physically hurt you: never How often does anyone, including family, friends and others, insult or talk down to you: never How often does anyone, including family, friends and others, threaten you with harm: never How often does anyone, including family, friends and others, scream or curse at you: never service: No Meds Home Medications and Allergies Home Medications ?Medication ?Instructions ?Recorded ?Confirmed ?Type amlodipine 5 mg tablet 5 mg PO DAILY 12/10/22 05/06/25 History fluticasone 250 mcg-salmeterol 50 1 ea inhalation BID 12/10/22 05/06/25 History mcg/dose blistr powdr for inhalation gabapentin 300 mg capsule 300 mg PO HS PRN 12/10/22 05/06/25 History losartan 50 mg tablet 50 mg PO DAILY 12/10/22 05/06/25 History rosuvastatin 10 mg tablet 10 mg PO HS 12/10/22 05/06/25 History semaglutide 2 mg/dose (8 mg/3 mL) 2 mg subcut .weekly 12/10/22 05/06/25 History subcutaneous pen injector (Ozempic) albuterol sulfate 90 mcg/actuation 2 inh inhalation Q4H PRN 12/11/22 05/06/25 History aerosol inhaler aspirin 81 mg tablet,delayed 81 mg PO DAILY 12/11/22 05/06/25 History release (Ecotrin Low Strength) omeprazole 20 mg capsule,delayed 20 mg PO DAILY 12/11/22 05/06/25 History release levothyroxine 125 mcg tablet 125 mcg PO DAILY 01/28/24 05/06/25 History Allergies Allergy/AdvReac Type Severity Reaction Status Date / Time duloxetine (From Cymbalta) AdvReac Severe Dizziness Verified 05/06/25 21:45 Exam Narrative Exam Narrative: Physical Exam GENERAL: ?vital signs reviewed, well developed and nourished, in no distress HEART: Regular rate and rhythm without any rubs, murmurs, or gallops. LUNGS: Clear to auscultation bilaterally with good air movement throughout ABDOMEN: Observation from nurse assisted exam, abdomen appears soft, nontender, and nondistended with Positive bowel sounds noted. EXTREMITIES: Strength and sensation is observed to be grossly within normal limits in the upper and lower extremities.? No focal strength deficit is observed. SKIN:? Observed warm and dry with color normal No CVA tenderness Const Vital Signs, click to edit/add: Vital Signs - 24 hr 05/06/25 21:36 05/06/25 23:09 05/07/25 00:09 Temperature 97.3 F L Pulse Rate 85 82 Pulse Rate [Pulse Oximeter] 95 Pulse Rate [Right Pulse Oximeter] Respiratory Rate 16 16 Blood Pressure 120/53 L 113/55 L Blood Pressure [Left Arm] Blood Pressure [Right Upper Arm] 95/63 Pulse Oximetry 94 91 94 Oxygen Delivery Method Room Air Nasal Cannula Room Air Oxygen Flow Rate 2 05/07/25 01:45 Temperature 98.8 F Pulse Rate Pulse Rate [Pulse Oximeter] Pulse Rate [Right Pulse Oximeter] 85 Respiratory Rate 20 Blood Pressure Blood Pressure [Left Arm] 131/60 Blood Pressure [Right Upper Arm] Pulse Oximetry 94 Oxygen Delivery Method Room Air Oxygen Flow Rate Hospitalist - H&P: Result Labs Labs: Short CBC 05/06/25 Range/Units 23:01 WBC 11.50 H (4.50-11.00) K/uL Hgb 12.1 (12.0-16.0) gm/dL Hct 35.8 (33.0-51.0) % Plt Count 131 L (140-440) K/uL BMP 05/06/25 23:01 Sodium 130 L Potassium 3.3 L Chloride 97 Carbon Dioxide 20 BUN 29 Creatinine 1.9 H Glucose 169 H Calcium 8.2 L Liver Function 05/06/25 Range/Units 23:01 Total Bilirubin 1.1 (0.1-1.5) mg/dL AST 22 (12-35) U/L ALT 15 (4-35) U/L Alkaline Phosphatase 65 (40-150) U/L Albumin 3.4 (3.3-5.0) g/dL Urine 05/06/25 Range/Units 23:13 Urine Color Yellow (Yellow) Urine Appearance Slightly Cloudy A (Clear) Urine pH 5.0 (5.0-8.5) Ur Specific [place] 1.015 (1.000-1.030) Urine Protein 3+ A (Negative) Urine Glucose (UA) Negative (Negative) Imaging CT scan - abdomen: Attestation: I have reviewed the pertinent imaging results. Assessment and Plan Assessment and plan (1) Acute pyelonephritis: Status: Acute (2) Acute kidney injury: Status: Acute (3) Acute hypokalemia: Status: Acute (4) Acute hyponatremia: Status: Acute (5) Sepsis: Status: Acute Plan Patient is a 74-year-old woman with type 2 diabetes had stage III chronic kidney disease. She fell at home due to dizziness and hit her head. She has been dizzy and lightheaded for a few days. On the day of admission she also had shaking chills and some low back pain. She vomited a couple of times. She has had dysuria. No blood in her urine. In the emergency room her initial blood pressure was 95/60 3 repeat 120/53. Normal temperature other via both signs stable. Her exam was unremarkable. She had no suprapubic or CVA tenderness. Labs showed white count 11.5 thousand platelets 131,000 sodium 130 potassium 3.3 creatinine 1.9 lactate 1.1. Respiratory panel negative. UA showed 2-5 red cells 10-25 white cells 2+ leukocyte esterase moderate bacteria. CT of the head was negative. Cervical spine x-ray negative for acute fracture or dislocation. CT of the abdomen showed inflammation around the left kidney consistent with pyelonephritis. The study was done without contrast and renal abscess could not be completely excluded. The patient received 1 g of IV ceftriaxone and 1 L of normal saline. She is being admitted for further treatment. Acute left pyelonephritis Sepsis 2 to the above Recurrent urinary tract infections Admit for observation Continue IV ceftriaxone Follow-up urine and blood cultures Renal ultrasound tomorrow to rule out renal abscess She can be referred back to her primary urologist after discharge Acute on chronic kidney injury Hypokalemia Hyponatremia Continue with IV normal saline Repeat labs tomorrow morning Type 2 diabetes Insulin correction scale ordered Holding Ozempic Resolved acute hypotension Hypertension Holding her prior to admission antihypertensive medications due to her acute hypotension Neuropathy Continue gabapentin when verified Hypothyroidism Continue levothyroxine when verified Hypercholesterolemia Continue statin when verified Telehealth: Statement Statement Telehealth Visit: Today's History and Physical is provided via interactive telehealth by Merritt Llanos MD.? Patient is located at [facility].? Provider is located at [facility].? Nursing staff assisted with the patient's exam. The visit being done today meets criteria for a telehealth visit and the patient or patient?s parent/guardian is aware the visit is a telehealth visit. Camera Start Time: 01:55 Camera End Time: 02:05
[2025-05-07] MEDS: ONDANSETRON ODT 4 MG TAB PO ×2 (03:59→14:45)
[2025-05-07] MEDS: ACETAMINOPHEN 325 MG TABLET 650 MG PO ×3 (04:15→23:28)
[2025-05-07 05:40] LABS: Lactate Sepsis w/Reflex* 0.9 mmol/L (0.5-1.9)
--- NOTE | 2025-05-07 06:42 | PC.NURSE ---
End of shift report: Pt was admitted to the floor at 0145. On admission pt was afebrile, at 0400 pt was noted to have a fever of 101.9, prn?tylenol?given, upon reassessment?pt was noted to have a fever of 103.1,?Jose SMITH was contacted?regarding?temp,?utilized?ice packs to cool down the patient. Ice packs?utilized?as well as taking off the?patients?pajamas and blankets.?Opon?reassessments?pts?temp?was noted to decrease to?99.6.?Pt rates low back?pain from?a?8-0/10, prn?tylenol?offered and?given with?relief.?Pt had 3 episodes of liquid clear emesis this shift, prn?zofran?given. Pt ambulates SBA with GB and W. Bed alarm on, call light within reach.?
--- NOTE | 2025-05-07 08:10 | P.IMPN_ITS ---
Assessment and Plan Assessment and plan (1) Sepsis: Problem comment: -criteria met for sepsis secondary to pyelonephritis as her temp of a 103? F and respiratory greater than 20 and with SOFA score greater than or equal to 2. -SOFA score equals 2. Mortality risk 6.4%. 1 point for her elevated creatinine 1 point for her platelets being less than 150,000 Status: Acute (2) Acute kidney injury superimposed on stage 3a chronic kidney disease: Problem comment: baseline: 0.94/14 in December 2024 (GFR 64) admit 29/1.9 (GFR 28) 05/07 improving slightly Total 3 liters bolus and now on 75cc/hr - will increase to 150cc/hr. orthostatics reassuring Status: Acute (3) Acute pyelonephritis: Problem comment: -Asymmetric moderate perinephric inflammatory stranding and enlargement of the left kidney without hydronephrosis or obstructing lesion identified -pyuria; +LE. UC pending. BC pending. Status: Acute (4) CKD (chronic kidney disease) stage 2, GFR 60-89 ml/min: Problem comment: -abstracted from [facility] records Status: Acute (5) Non-insulin dependent type 2 diabetes mellitus: Problem comment: - check A1c; Accuchecks, SSI as necessary - last A1C 5.4 (December 2024) - takes Ozempic QWednday Status: Acute (6) Acute hypokalemia: Problem comment: 05/07 resolved Status: Acute (7) Acute hyponatremia: Problem comment: 05/07 resolved Status: Acute (8) SUPA on CPAP: Status: Acute Subjective Date Seen: 05/07/25 Interval history: Daily Progress Note - Hospital Medicine #: 1 CC: Pyelonephritis 24 HOUR UPDATE: -admitted after midnight today 05/07 -Rocephin received at midnight 05/07 (1 gram) Notable Labs, Micro, Rads, Interventions: Renal u/s 05/07 Anechoic lesion in the left superior renal pole measuring up to 3.5 cm is most compatible with a cyst. The bilateral kidneys are otherwise unremarkable. No ureteral jets appreciated, the bladder is otherwise unremarkable Highest temp overnight was 5am this morning, 103.1. Currently 98.6? F Blood pressures have been stable 130s over 80s. Pulse 90s, down to 80s. Respiratory rate 20 Pulse ox 94% on room air Weight 99.5 kilos Reviewing labs from last evening: -white blood cell count 11.5, hemoglobin 12.1, platelet count 131 --> WBC the same this am, hemoglobin stable, plt count down to 111 -sodium 130, potassium 3.3, creatinine 1.9, glucose 169. Lactate normal. --> Na improved to 135; potassium improved; creat down to 1.7 (GFR up from 28 to 32). -CRP 32 --> down to 17.9 05/07 INR 1.43 pH 7.3; bicarb [address] 1. Findings compatible with left-sided pyelonephritis. Incompletely evaluated rounded area of fullness within the left kidney superior pole. While this could be a normal variant prominent medullary pyramid, a renal abscess cannot be entirely excluded. Consider ultrasound for further evaluation. 2. Colonic diverticulosis without evidence for acute diverticulitis. Micro -2 blood cultures are negative to date -urine culture pending Objective: alert, comfortable Vitals: see above Lungs: Clear. Cardiac: S1S2. No CVAT, No suprapubic pain to palpation Disposition/Potential discharge - 24-48 hours to home Today I spent 50minutes seeing the patient, reviewing Expanse and EPIC notes/diagnostics, discussing the care plan with our care time that includes social work, PT/OT, pharmacy, RT, long term and documenting my impressions and plan in the medical record. Exam Const: Vital Signs, click to edit/add: Vital Signs - 24 hr 05/06/25 21:36 05/06/25 23:09 05/07/25 00:09 Temperature 97.3 F L Pulse Rate 85 82 Pulse Rate [Pulse Oximeter] 95 Pulse Rate [Right Pulse Oximeter] Respiratory Rate 16 16 Blood Pressure 120/53 L 113/55 L Blood Pressure [Le ft Arm] Blood Pressure [Ri ght Upper Arm] 95/63 Pulse Oximetry 94 91 94 Oxygen Delivery Me thod Room Air Nasal Cannula Room Air Oxygen Flow Rate 2 05/07/25 01:45 05/07/25 01:45 05/07/25 04:00 Temperature 98.8 F 101.9 F H Pulse Rate Pulse Rate [Pulse Oximeter] Pulse Rate [Right Pulse Oximeter] 85 97 Respiratory Rate 20 20 Blood Pressure Blood Pressure [Le ft Arm] 131/60 139/89 Blood Pressure [Ri ght Upper Arm] Pulse Oximetry 94 94 94 Oxygen Delivery Me thod Room Air Room Air Room Air Oxygen Flow Rate 05/07/25 05:09 05/07/25 05:30 05/07/25 06:00 Temperature 103.1 F H 100.1 F H 102 F H Pulse Rate Pulse Rate [Pulse Oximeter] Pulse Rate [Right Pulse Oximeter] Respiratory Rate Blood Pressure Blood Pressure [Le ft Arm] Blood Pressure [Ri ght Upper Arm] Pulse Oximetry Oxygen Delivery Me thod Oxygen Flow Rate 05/07/25 06:20 05/07/25 06:40 05/07/25 07:00 Temperature 100.2 F H 99.6 F Pulse Rate Pulse Rate [Pulse Oximeter] Pulse Rate [Right Pulse Oximeter] Respiratory Rate 20 Blood Pressure Blood Pressure [Le ft Arm] Blood Pressure [Ri ght Upper Arm] Pulse Oximetry 94 Oxygen Delivery Me thod Room Air Oxygen Flow Rate 05/07/25 07:00 Temperature 98.6 F Pulse Rate Pulse Rate [Pulse Oximeter] Pulse Rate [Right Pulse Oximeter] 85 Respiratory Rate 20 Blood Pressure Blood Pressure [Le ft Arm] 139/36 L Blood Pressure [Ri ght Upper Arm] Pulse Oximetry 94 Oxygen Delivery Me thod Room Air Oxygen Flow Rate Labs Labs: Laboratory Results - last 24 hr 05/06/25 05/06/25 05/06/25 23:00 23:01 23:13 WBC 11.50 H RBC 3.86 L Hgb 12.1 Hct 35.8 MCV 93 MCH 31 MCHC 34 RDW Coeff of [place] 12.9 Plt Count 131 L Neut % (Auto) 85.2 H Lymph % (Auto) 4.0 L [place] % (Auto) 9.1 Eos % (Auto) 0.1 Baso % (Auto) 0.1 Neut # (Auto) 9.80 H Lymph # (Auto) 0.50 L [place] # (Auto) 1.00 H Eos # (Auto) 0.00 Baso # (Auto) 0.00 Abs Immat Gran (auto) 0.20 Imm/Tot Granulo (auto) 1.5 Sodium 130 L Potassium 3.3 L Chloride 97 Carbon Dioxide 20 Anion Gap 13 BUN 29 Creatinine 1.9 H Estimated Creat Clear 21.17 Estimated GFR 28 Glucose 169 H Lactate 1.1 Calcium 8.2 L Total Bilirubin 1.1 AST 22 ALT 15 Alkaline Phosphatase 65 C-Reactive Protein 32.0 H Total Protein 6.1 Albumin 3.4 Urine Color Yellow Urine Appearance Slightly Cloudy A Urine pH 5.0 Ur Specific [place] 1.015 Urine Protein 3+ A Urine Glucose (UA) Negative Urine Ketones Trace A Urine Blood 1+ A Urine Nitrite Negative Urine Bilirubin 1+ A Urine Urobilinogen 1.0 Ur Leukocyte Esterase 2+ A Urine RBC 2-5 A Urine WBC 10-25 A Ur Squamous Epith Cells None Urine Bacteria Moderate A SARS-CoV-2 (PCR) Negative SARS-CoV-2 Influenza Type A (PCR) Negative PCR FLU A Influenza Type B (PCR) Negative PCR FLU B 05/07/25 05:36 WBC RBC Hgb Hct MCV MCH MCHC RDW Coeff of [place] Plt Count Neut % (Auto) Lymph % (Auto) [place] % (Auto) Eos % (Auto) Baso % (Auto) Neut # (Auto) Lymph # (Auto) [place] # (Auto) Eos # (Auto) Baso # (Auto) Abs Immat Gran (auto) Imm/Tot Granulo (auto) Sodium Potassium Chloride Carbon Dioxide Anion Gap BUN Creatinine Estimated Creat Clear Estimated GFR Glucose Lactate 0.9 Calcium Total Bilirubin AST ALT Alkaline Phosphatase C-Reactive Protein Total Protein Albumin Urine Color Urine Appearance Urine pH Ur Specific [place] Urine Protein Urine Glucose (UA) Urine Ketones Urine Blood Urine Nitrite Urine Bilirubin Urine Urobilinogen Ur Leukocyte Esterase Urine RBC Urine WBC Ur Squamous Epith Cells Urine Bacteria SARS-CoV-2 (PCR) Influenza Type A (PCR) Influenza Type B (PCR)
[2025-05-07 08:27] LABS: HCO3 VBG 22 mmol/L (21-28); PCO2 VBG 38 mmHG (40-50); PO2 VBG 31.6 mmHG (25-47); pH VBG 7.370 (7.32-7.43)
[2025-05-07 08:28] LABS: Hematocrit* 36.0 % (33.0-51.0); Hemoglobin* 12.1 gm/dL (12.0-16.0); Immature Granulocytes Pct Auto 1.0 %; Mean Corpuscular HGB Conc 34 gm/dL (32-36); Mean Corpuscular Hemoglobin 32 pg (26-34); Mean Corpuscular Volume 94 fL (80-100); RDW Coefficient of Variation % 13.0 % (11.5-15.5); Red Blood Count* 3.83 m/uL (4.00-5.20); White Blood Count* 11.38 K/uL (4.50-11.00)
[2025-05-07 08:31] LABS: Immature Granulocytes Abs Auto 0.10 K/uL (0.00-0.30); Lymphocytes Absolute Auto 0.40 K/uL (0.90-2.90); Slide Review Reflex No
[2025-05-07 08:44] LABS: Albumin* 3.1 g/dL (3.3-5.0); Chloride* 103 mmol/L (96-114)
[2025-05-07 08:45] LABS: Potassium* 3.6 mmol/L (3.6-5.1); Sodium* 135 mmol/L (135-149)
[2025-05-07 08:47] LABS: Blood Urea Nitrogen* 25 mg/dL (7-30); Creatinine* 1.7 mg/dL (0.5-1.5); Est. Creatinine Clearance* 23.66; Estimated Glomerular Filt Rate 32 ml/min; INR 1.43 (0.91-1.10); Prothrombin Time 18.4 Seconds
[2025-05-07 08:48] LABS: Alanine Aminotransferase* 14 U/L (4-35); Alkaline Phosphatase* 63 U/L (40-150); Anion Gap 12 mEq/L (7-15); Aspartate Amino Transferase* 23 U/L (12-35); Bilirubin Direct* 0.6 mg/dL (0.0-0.5); Bilirubin Total* 1.0 mg/dL (0.1-1.5); Calcium* 7.7 mg/dL (8.4-10.6); Carbon Dioxide* 20 mmol/L (20-32); Glucose* 138 mg/dL (60-115); Total Protein* 5.9 g/dL (6.0-8.3)
[2025-05-07] MEDS: LEVOTHYROXINE 75 MCG TABLET PO (09:04)
[2025-05-07] MEDS: ENOXAPARIN 30 MG/0.3ML INJ SUBCUT (09:04)
[2025-05-07] MEDS: ASPIRIN 81 MG TABLET EC PO (09:04)
[2025-05-07] MEDS: CLOTRIMAZOLE 1 % CREAM 1 APPLIC TOPICAL (17:19)
[2025-05-07] MEDS: HYDROCORTISONE 2.5% CREAM 1 APPLIC TOPICAL (17:19)
--- NOTE | 2025-05-07 19:21 | PC.NURSE ---
End of shift [id number] - Pt alert, oriented, cooperative. Up with standby assistance and walker/gait belt. Pt denies pain, reports discomfort in low back that comes and goes. Given medication and ice pack for increased comfort, pt reported improvement. Pt reported nausea x1 during shift with no emesis. Given medication per AUG to improve nausea with pt reporting improvement. Pt reported feeling chills once during shift, pt observed to shiver uncontrollably. Low grade fever noted, pt given antipyretic per AUG. Temperature recheck completed with improvement noted. At approximately 1855, pt reporting feeling chest heaviness without pain and SOB. VS measured, LS clear, and MD made aware. EKG completed per MD verbal order. At end of shift, pt appears to be resting comfortably in bed with call light within reach.
[2025-05-07] MEDS: ROSUVASTATIN CALCIUM 10 MG TABLET PO (20:32)
[2025-05-08] VITALS (10 sets, daily range): BP systolic 133–169; BP diastolic 73–93; PULSE 75–86; RESP 16–20; TEMP 36.9–37.7; O2SAT 92–97
[2025-05-08] MEDS: HYDROCORTISONE 2.5% CREAM 1 APPLIC TOPICAL ×3 (04:10→19:45)
[2025-05-08] MEDS: CLOTRIMAZOLE 1 % CREAM 1 APPLIC TOPICAL ×3 (04:10→19:44)
[2025-05-08 05:43] LABS: Hematocrit* 32.1 % (33.0-51.0); Hemoglobin* 10.8 gm/dL (12.0-16.0); Immature Granulocytes Abs Auto 0.02 K/uL (0.00-0.30); Immature Granulocytes Pct Auto 0.3 %; Mean Corpuscular HGB Conc 34 gm/dL (32-36); Mean Corpuscular Hemoglobin 32 pg (26-34); Mean Corpuscular Volume 94 fL (80-100); RDW Coefficient of Variation % 13.0 % (11.5-15.5); Red Blood Count* 3.40 m/uL (4.00-5.20); White Blood Count* 7.82 K/uL (4.50-11.00)
[2025-05-08 05:46] LABS: Lymphocytes Absolute Auto 0.60 K/uL (0.90-2.90); Slide Review Reflex No
[2025-05-08 06:06] LABS: Albumin* 2.8 g/dL (3.3-5.0); Chloride* 107 mmol/L (96-114); Potassium* 3.5 mmol/L (3.6-5.1); Sodium* 134 mmol/L (135-149)
[2025-05-08 06:08] LABS: Blood Urea Nitrogen* 20 mg/dL (7-30); Creatinine* 1.4 mg/dL (0.5-1.5); Est. Creatinine Clearance* 28.73; Estimated Glomerular Filt Rate 40 ml/min
[2025-05-08 06:09] LABS: Alanine Aminotransferase* 13 U/L (4-35); Alkaline Phosphatase* 70 U/L (40-150); Anion Gap 8 mEq/L (7-15); Aspartate Amino Transferase* 21 U/L (12-35); Bilirubin Direct* 0.4 mg/dL (0.0-0.5); Bilirubin Total* 0.6 mg/dL (0.1-1.5); Calcium* 7.5 mg/dL (8.4-10.6); Carbon Dioxide* 19 mmol/L (20-32); Glucose* 104 mg/dL (60-115); Total Protein* 5.4 g/dL (6.0-8.3)
[2025-05-08] MEDS: OMEPRAZOLE 20 MG CAPSULE DR PO (06:31)
[2025-05-08] MEDS: LEVOTHYROXINE 75 MCG TABLET PO (06:31)
--- NOTE | 2025-05-08 06:36 | PC.NURSE ---
End of shift report :?AxOx4.?VSS. Pt had a?fever this shift of 100.4, prn?Tylenol?given with?relief. Upon reassessment?pts?temp?was?99.2. Pt denies pain. Pt denies nausea.?Pt ambulates SBA with Sondra MORSE. Bed alarm on, call light within reach.?
[2025-05-08] MEDS: ASPIRIN 81 MG TABLET EC PO (08:27)
--- NOTE | 2025-05-08 08:27 | P.IMPN_ITS ---
Assessment and Plan Assessment and plan (1) Bacteremia due to Escherichia coli: Problem comment: -rocephin 2 grams q 24 hours -awaiting sensitivities -overall - improving Status: Acute (2) Sepsis: Problem comment: -criteria met for sepsis secondary to pyelonephritis as her temp of a 103? F and respiratory greater than 20 and with SOFA score greater than or equal to 2. -SOFA score equals 2. Mortality risk 6.4%. 1 point for her elevated creatinine 1 point for her platelets being less than 150,000 05/08 - now with bacteremia; SOFA score still at 2 for plts and creatinine. continue current care; fever curve defervescing; BP and resp status stable/normal. Status: Acute (3) Acute kidney injury superimposed on stage 3a chronic kidney disease: Problem comment: baseline: 0.94/14 in December 2024 (GFR 64) admit 29/1.9 (GFR 28) 05/07 improving slightly Total 3 liters bolus and now on 75cc/hr - will increase to 150cc/hr. orthostatics reassuring 05/08 - improving. Status: Acute (4) Acute pyelonephritis: Problem comment: -Asymmetric moderate perinephric inflammatory stranding and enlargement of the left kidney without hydronephrosis or obstructing lesion identified -pyuria; +LE. -UC gram - rods -BC +EColi Status: Acute (5) CKD (chronic kidney disease) stage 2, GFR 60-89 ml/min: Problem comment: -abstracted from [facility] records Status: Acute (6) Non-insulin dependent type 2 diabetes mellitus: Problem comment: - check A1c; Accuchecks, SSI as necessary - last A1C 5.4 (December 2024) - takes Ozempic QWednes05/08 - BS 139-118 Status: Acute (7) Acute hypokalemia: Problem comment: monitoring Status: Acute (8) Acute hyponatremia: Problem comment: monitoring Status: Acute (9) SUPA on CPAP: Status: Acute Subjective Date Seen: 05/08/25 Interval history: Daily Progress Note - Hospital Medicine Day #: 2 CC: Pyelonephritis with bacteremia 24 HOUR UPDATE: -BC pos at 2241 on 05/07, EColi by [employer] -UC gram neg rods, likely same organism -No appetite; bedside. -questions about prevention and sepsis plan answered Notable Labs, Micro, Rads, Interventions: T-max overnight was 100.4, currently 99.2 Blood pressures are mildly elevated. 149/73 133/73 Pulse is 70s and 80s Respiratory rate 18 to 20 Pulse ox 92-97% on room air 102.6 kilos White blood cell count is down from 11 0.4-7.8 Hemoglobin has drifted to 10.8, from 12.1 Platelets are about the same 111 K Sodium 134. Potassium 3.5. Mildly acidotic with a carbon dioxide of 19. No blood gas drawn this morning. Creatinine is improving nicely from a high of 1.9 now down to 1.4 GFR has increased from 28-40 Blood glucose 104. Liver enzymes normal CRP had tract from 32 down to 18 but is back up to [address] 1. Findings compatible with left-sided pyelonephritis. Incompletely evaluated rounded area of fullness within the left kidney superior pole. While this could be a normal variant prominent medullary pyramid, a renal abscess cannot be entirely excluded. Consider ultrasound for further evaluation. 2. Colonic diverticulosis without evidence for acute diverticulitis. Objective: alert, comfortable Vitals: see above Lungs: Clear. Cardiac: S1S2. No CVAT, No suprapubic pain to palpation Disposition/Potential discharge - 24-48 hours to home Today I spent 50minutes seeing the patient, reviewing Expanse and EPIC notes/diagnostics, discussing the care plan with our care time that includes social work, PT/OT, pharmacy, RT, shelter and documenting my impressions and plan in the medical record. Exam Const: Vital Signs, click to edit/add: Vital Signs - 24 hr 05/07/25 09:44 05/07/25 11:00 05/07/25 15:10 Temperature 98.5 F Pulse Rate [Right Pulse Oximeter] 81 Pulse Rate [orthos tatic lying Pulse Oximeter] 75 Pulse Rate [orthos tatic standing Pul se Oximeter] 81 Respiratory Rate 20 20 Blood Pressure [Le ft Arm] 124/62 Blood Pressure [or thostatic lying Le ft Arm] 119/55 L Blood Pressure [or thostatic standing Left Arm] 124/62 Pulse Oximetry 96 94 Oxygen Delivery Me thod Room Air Room Air 05/07/25 15:10 05/07/25 16:58 05/07/25 16:59 Temperature 99.4 F 99.3 F 99.3 F Pulse Rate [Right Pulse Oximeter] 85 Pulse Rate [orthos tatic lying Pulse Oximeter] Pulse Rate [orthos tatic standing Pul se Oximeter] Respiratory Rate 20 Blood Pressure [Le ft Arm] 161/70 H Blood Pressure [or thostatic lying Le ft Arm] Blood Pressure [or thostatic standing Left Arm] Pulse Oximetry 94 Oxygen Delivery Me thod Room Air 05/07/25 18:55 05/07/25 19:00 05/07/25 20:12 Temperature 99.2 F Pulse Rate [Right Pulse Oximeter] 78 78 Pulse Rate [orthos tatic lying Pulse Oximeter] Pulse Rate [orthos tatic standing Pul se Oximeter] Respiratory Rate 20 20 20 Blood Pressure [Le ft Arm] 159/66 H 145/74 H Blood Pressure [or thostatic lying Le ft Arm] Blood Pressure [or thostatic standing Left Arm] Pulse Oximetry 97 95 Oxygen Delivery Me thod Room Air Room Air 05/07/25 23:00 05/07/25 23:23 05/07/25 23:28 Temperature 100.4 F H 100.4 F H Pulse Rate [Right Pulse Oximeter] 87 Pulse Rate [orthos tatic lying Pulse Oximeter] Pulse Rate [orthos tatic standing Pul se Oximeter] Respiratory Rate 20 20 Blood Pressure [Le ft Arm] 143/82 H Blood Pressure [or thostatic lying Le ft Arm] Blood Pressure [or thostatic standing Left Arm] Pulse Oximetry 94 94 Oxygen Delivery Me thod Room Air Room Air 05/08/25 03:00 05/08/25 07:45 Temperature 99.2 F Pulse Rate [Right Pulse Oximeter] 82 75 Pulse Rate [orthos tatic lying Pulse Oximeter] Pulse Rate [orthos tatic standing Pul se Oximeter] Respiratory Rate 20 18 Blood Pressure [Le ft Arm] 149/73 H 133/73 Blood Pressure [or thostatic lying Le ft Arm] Blood Pressure [or thostatic standing Left Arm] Pulse Oximetry 92 97 Oxygen Delivery Me thod Room Air Room Air Labs Labs: Laboratory Results - last 24 hr 05/07/25 05/07/25 05/07/25 08:22 19:02 20:56 WBC 11.38 H RBC 3.83 L Hgb 12.1 Hct 36.0 MCV 94 MCH 32 MCHC 34 RDW Coeff of Tomer 13.0 Plt Count 111 L Neut % (Auto) 86.7 H Lymph % (Auto) 3.8 L Hutchinson % (Auto) 8.4 Eos % (Auto) 0.0 Baso % (Auto) 0.1 Neut # (Auto) 9.90 H Lymph # (Auto) 0.40 L Hutchinson # (Auto) 1.00 H Eos # (Auto) 0.00 Baso # (Auto) 0.00 Abs Immat Gran (auto) 0.10 Imm/Tot Granulo (auto) 1.0 INR 1.43 H VBG pH 7.370 VBG pCO2 38 L VBG pO2 31.6 VBG HCO3 22 Sodium 135 Potassium 3.6 Chloride 103 Carbon Dioxide 20 Anion Gap 12 BUN 25 Creatinine 1.7 H Estimated Creat Clear 23.66 Estimated GFR 32 Glucose 138 H Hemoglobin A1c 5.1 Calcium 7.7 L Phosphorus 2.4 L Total Bilirubin 1.0 Direct Bilirubin 0.6 H AST 23 ALT 14 Alkaline Phosphatase 63 Troponin I 0.02 < 0.01 < 0.01 C-Reactive Protein 17.9 H Total Protein 5.9 L Albumin 3.1 L / 05:20 WBC 7.82 RBC 3.40 L Hgb 10.8 L Hct 32.1 L MCV 94 MCH 32 MCHC 34 RDW Coeff of Tomer 13.0 Plt Count 111 L Neut % (Auto) 81.7 H Lymph % (Auto) 7.2 L Hutchinson % (Auto) 9.5 Eos % (Auto) 1.2 Baso % (Auto) 0.1 Neut # (Auto) 6.40 Lymph # (Auto) 0.60 L Hutchinson # (Auto) 0.70 Eos # (Auto) 0.09 Baso # (Auto) 0.01 Abs Immat Gran (auto) 0.02 Imm/Tot Granulo (auto) 0.3 INR VBG pH VBG pCO2 VBG pO2 VBG HCO3 Sodium 134 L Potassium 3.5 L Chloride 107 Carbon Dioxide 19 L Anion Gap 8 BUN 20 Creatinine 1.4 Estimated Creat Clear 28.73 Estimated GFR 40 Glucose 104 Hemoglobin A1c Calcium 7.5 L Phosphorus 2.5 Total Bilirubin 0.6 Direct Bilirubin 0.4 AST 21 ALT 13 Alkaline Phosphatase 70 Troponin I C-Reactive Protein 32.0 H Total Protein 5.4 L Albumin 2.8 L
[2025-05-08] MEDS: cefTRIAXone 2 GM in 0.9 % SODIUM CHLORIDE Mini-bag 100 ML IVPB (08:28)
[2025-05-08] MEDS: ENOXAPARIN 30 MG/0.3ML INJ SUBCUT (08:28)
[2025-05-08] MEDS: 5 % DEX/0.45 SOD CHL+KCL20 mEq 1,000 ML 125 ML IV ×2 (09:23→17:46)
[2025-05-08] MEDS: ONDANSETRON ODT 4 MG TAB PO (15:56)
[2025-05-08] MEDS: ACETAMINOPHEN 325 MG TABLET 650 MG PO (15:57)
[2025-05-08] MEDS: ROSUVASTATIN CALCIUM 10 MG TABLET PO (20:37)
[2025-05-09] MEDS: 5 % DEX/0.45 SOD CHL+KCL20 mEq 1,000 ML 125 ML IV (01:53)
[2025-05-09 03:00] VITALS: BP 182/90; PULSE 89; RESP 20; TEMP 37.7; O2SAT 93
[2025-05-09 03:44] VITALS: TEMP 37.7
[2025-05-09] MEDS: ACETAMINOPHEN 325 MG TABLET 650 MG PO (03:44)
[2025-05-09 06:30] VITALS: TEMP 37
[2025-05-09 06:30] LABS: HCO3 VBG 22 mmol/L (21-28); Hematocrit* 31.7 % (33.0-51.0); Hemoglobin* 10.8 gm/dL (12.0-16.0); Mean Corpuscular HGB Conc 34 gm/dL (32-36); Mean Corpuscular Hemoglobin 32 pg (26-34); Mean Corpuscular Volume 93 fL (80-100); PCO2 VBG 33 mmHG (40-50); PO2 VBG 53.8 mmHG (25-47); Red Blood Count* 3.41 m/uL (4.00-5.20); White Blood Count* 6.17 K/uL (4.50-11.00); pH VBG 7.436 (7.32-7.43)
[2025-05-09] MEDS: LEVOTHYROXINE 75 MCG TABLET PO (06:32)
[2025-05-09] MEDS: OMEPRAZOLE 20 MG CAPSULE DR PO (06:32)
--- NOTE | 2025-05-09 06:49 | PC.NURSE ---
End of shift report :?AxOx4. Pts highest?temp?this shift was 100, prn Tylenol offered and?given with?relief. Denies pain. Denies nausea.?Pt took a walk this shift with?lead technical writer.?Ambulates SBA with?IV?pole.?Pt?is up in the chair,?call?light?within?reach.
[2025-05-09 06:51] LABS: Chloride* 109 mmol/L (96-114); Sodium* 133 mmol/L (135-149)
[2025-05-09 06:52] LABS: Albumin* 2.6 g/dL (3.3-5.0); Potassium* 3.8 mmol/L (3.6-5.1); Slide Review Reflex No
[2025-05-09 06:55] LABS: Anion Gap 3 mEq/L (7-15); Blood Urea Nitrogen* 12 mg/dL (7-30); Calcium* 7.6 mg/dL (8.4-10.6); Carbon Dioxide* 21 mmol/L (20-32); Creatinine* 1.0 mg/dL (0.5-1.5); Est. Creatinine Clearance* 40.22; Estimated Glomerular Filt Rate 60 ml/min; Glucose* 128 mg/dL (60-115)
[2025-05-09 07:00] VITALS: BP 148/64; PULSE 75; RESP 16; TEMP 37.1; O2SAT 95
[2025-05-09] MEDS: cefTRIAXone 2 GM in 0.9 % SODIUM CHLORIDE Mini-bag 100 ML IVPB (07:34)
[2025-05-09] MEDS: ASPIRIN 81 MG TABLET EC PO (08:45)
[2025-05-09] MEDS: ENOXAPARIN 30 MG/0.3ML INJ SUBCUT (08:45)
[2025-05-09] MEDS: CLOTRIMAZOLE 1 % CREAM 1 APPLIC TOPICAL (08:47)
[2025-05-09] MEDS: HYDROCORTISONE 2.5% CREAM 1 APPLIC TOPICAL (08:47)
[2025-05-09] MEDS: SODIUM CHLORIDE 0.9 % (FLUSH) 10 ML SYRINGE 5 ML IVF (08:48)
[2025-05-09 11:00] VITALS: TEMP 36.5
--- NOTE | 2025-05-09 11:21 | PC.NURSE ---
Pt a/o x4, SBA. No pain reported during shift, IV removed Cath intact. D/C education given to pt and spouse, no questions or concerns at this time. Pt left via wheelchair accompanied by spouse
--- NOTE | 2025-05-09 16:12 | P.DS_ITS ---
DS: Providers Provider Date Seen: 05/09/25 Date of admission: 05/06/25 23:45 Primary care physician: Hallie Clancy MD Admitting Clinician: Merritt Llanos MD Attending Physician on discharge: Sulma Rivers MD Date of Discharge: 05/09/25 DS: Diagnosis Discharge Diagnosis (1) Bacteremia due to Escherichia coli: Status: Acute Problem details: -rocephin 2 grams q 24 hours - discharging on Vantin. Reviewed sensitivities. (2) Sepsis: Status: Acute Problem details: -criteria met for sepsis secondary to pyelonephritis as her temp of a 103? F and respiratory greater than 20 and with SOFA score greater than or equal to 2. -SOFA score equals 2. Mortality risk 6.4%. 1 point for her elevated creatinine 1 point for her platelets being less than 150,000 05/08 - now with bacteremia; SOFA score still at 2 for plts and creatinine. continue current care; fever curve defervescing; BP and resp status stable/normal. -RESOLVED (3) Acute kidney injury superimposed on stage 3a chronic kidney disease: Status: Acute Problem details: baseline: 0.94/14 in December 2024 (GFR 64) admit 29/1.9 (GFR 28) 05/07 improving slightly Total 3 liters bolus and now on 75cc/hr - will increase to 150cc/hr. orthostatics reassuring 05/08 - improving. -DISCHARGED WITH CREATININE OF 1.0 (4) Acute pyelonephritis: Status: Acute Problem details: -Asymmetric moderate perinephric inflammatory stranding and enlargement of the left kidney without hydronephrosis or obstructing lesion identified -pyuria; +LE. -UC gram - rods -BC +EColi -DISCHARGED ON ORAL ANTIBIOTICS. MADE SEVERAL SUGGESTIONS FOR PREVENTION OF FUTURE UTIS. (5) Acute hypokalemia: Status: Acute Problem details: monitoring (6) Acute hyponatremia: Status: Acute Problem details: monitoring (7) Non-insulin dependent type 2 diabetes mellitus: Status: Acute Problem details: - check A1c; Accuchecks, SSI as necessary - last A1C 5.4 (December 2024) - takes Ozempic QWednday 05/08 - BS 139-118 (8) CKD (chronic kidney disease) stage 2, GFR 60-89 ml/min: Status: Acute Problem details: -abstracted from [facility] records (9) SUPA on CPAP: Status: Acute DS: Summary Hospital Course Hospital Course: BRIEF HOSPITAL COURSE: Patient was admitted for 3 days. Synopsis of acute inpatient issues are outlined above. Chronic medical conditions with notable findings outlined above. Patient presented after falling at home hitting her head. She was found to be septic with a acute left-sided pyelonephritis. She ultimately was bacteremic. She also had an acute kidney injury superimposed on a mild chronic kidney disease. She received IV Rocephin, fluids. She did quite well. We transitioned her to oral Vantin after reviewing the sensitivities on the E coli. She will continue this in the outpatient setting for a completion of 14 days of antibiotics. I did ask her to speak with her PCP regarding prevention of UTIs. We discussed topical estrogen, self start oral antibiotics, post coital or daily prevention. Her kidney function was back to her baseline on the day of discharge. She was afebrile. She was requesting discharge. This is appropriate. DISCHARGE MEDICATIONS: See Reconciled list -no change to her chronic medications. Short-term antibiotics as described above. Specific instructions to the patient and follow-up are outlined below. REVIEW OF SYSTEMS No new chest pain or dyspnea Pain controlled No voiding difficulties Tolerating diet challenge PHYSICAL EXAM: CONSTITUTIONAL: Conversive, good historian. A/O. Knows setting and context. GENERAL: Well-developed and above ideal body weight, in no respiratory distress. VITAL SIGNS: see record. HEENT: Sclerae are anicteric. No petechiae. CARDIAC: rhythm is regular. There is no S3 or rub. No harsh murmurs. Extremities show trace edema with symmetrical pulses. PULM: good air entry with no wheeze. NEURO: Speech is fluent. A brief neurologic exam is negative. SKIN: No rashes, petechiae, concerning changes PSYCHIATRIC: Euthymic. DISPOSITION: Home with spouse, self-care Time spent on discharge 37 minutes. Time Spent with Patient Time attestation: Total time spent providing and/or coordinating discharge services: Exam Const: Vital Signs, click to edit/add: Vital Signs - 24 hr 05/08/25 19:00 05/08/25 19:30 05/08/25 22:57 Temperature 99.4 F 98.5 F Pulse Rate [Right Pulse Oximeter] 83 84 Respiratory Rate 20 20 18 Blood Pressure [Le ft Arm] 149/82 H 169/93 H Pulse Oximetry 97 94 Oxygen Delivery Me thod Room Air Room Air 05/08/25 22:59 05/09/25 03:00 05/09/25 03:44 Temperature 100 F H 100 F H Pulse Rate [Right Pulse Oximeter] 89 Respiratory Rate 18 20 Blood Pressure [Le ft Arm] 182/90 H Pulse Oximetry 94 93 Oxygen Delivery Me thod Room Air Room Air 05/09/25 06:30 05/09/25 07:00 05/09/25 07:00 Temperature 98.6 F 98.8 F Pulse Rate [Right Pulse Oximeter] 75 Respiratory Rate 16 Blood Pressure [Le ft Arm] 148/64 H Pulse Oximetry 95 95 Oxygen Delivery Me thod Room Air Room Air 05/09/25 11:00 Temperature 97.7 F Pulse Rate [Right Pulse Oximeter] Respiratory Rate Blood Pressure [Le ft Arm] Pulse Oximetry Oxygen Delivery Me thod DS: Data Data Completed and Pending Labs on day of discharge: Labs from last 24 hours 05/09/25 05:50 WBC 6.17 RBC 3.41 L Hgb 10.8 L Hct 31.7 L MCV 93 MCH 32 MCHC 34 Plt Count 116 L VBG pH 7.436 H VBG pCO2 33 L VBG pO2 53.8 H VBG HCO3 22 Sodium 133 L Potassium 3.8 Chloride 109 Carbon Dioxide 21 Anion Gap 3 L BUN 12 Creatinine 1.0 Estimated Creat Clear 40.22 Estimated GFR 60 Glucose 128 H Calcium 7.6 L Phosphorus 2.0 L Magnesium 1.6 C-Reactive Protein 10.5 H Albumin 2.6 L Preliminary micro results at discharge 05/06/25 23:01 Blood Culture - Preliminary Blood Escherichia coli 05/06/25 23:01 Blood Culture - Preliminary Blood NO GROWTH AFTER 48 HOURS Discharge Plan Discharge Disposition: Home, Self-Care Date of Admission: 05/06/25 23:45 Primary Care Provider: Hallie Clancy Condition: Improved Anticipated Discharge Date/Time: 05/09/25 09:46 Discharge Medications: New cefpodoxime 200 mg tablet 200 mg PO BID Qty: 20 0RF Rx Instructions: must administer with a meal/food first dose evening of 05/09 Continued levothyroxine 75 mcg tablet 75 mcg PO DAILY solifenacin 10 mg tablet 10 mg PO DAILY losartan 50 mg tablet 50 mg PO DAILY amlodipine 5 mg tablet 5 mg PO DAILY gabapentin 300 mg capsule 300 mg PO HS PRN rosuvastatin 10 mg tablet 10 mg PO HS Ozempic 2 mg/dose (8 mg/3 mL) pen injector 2 mg subcut .weekly Rx Instructions: takes on Friday aspirin [Ecotrin Low Strength] 81 mg tablet,delayed release (DR/EC) 81 mg PO DAILY albuterol sulfate 90 mcg/actuation HFA aerosol inhaler 2 inh inhalation Q4H PRN omeprazole 20 mg capsule,delayed release(DR/EC) 20 mg PO DAILY Discontinued sulfamethoxazole-trimethoprim 800-160 mg tablet 1 tab PO BID Discharge Orders: Discharge Order (Routine); Ordered 05/09/25 Ordered By: Sulma Rivers Patient Education: Cefpodoxime Proxetil (By mouth), Urinary Tract Infection in Women (DC) Additional Instructions: Take all the antibiotics with food Ask Dr. Sterling about topical estrogen, self-start antibiotics with OTC urine dipsticks, or daily or post-coital preventative anbiotics. Activity Level: Activity as Tolerated Follow Up Appointments: Tatyana Anaya MD [Staff Physician, Family Practice] - 05/16/25 11:30 am Hallie Clancy MD [Primary Care Provider, Family Practice] Referral Note: Dr. Clancy is unavailable Forms: [employer] Info Instructions
== END 2025-05-09 11:10 | disposition home or self-care (01) | DRG 872 ==
LOC: ED 22:31 → MEDSURG 05-07 01:06
PROVIDERS: Family Medicine; Admitting Provider Internal Medicine; Emergency Provider Family Medicine; PCP Family Medicine; Visit Provider Family Medicine
DX: A41.51 Sepsis due to Escherichia coli [E. coli] (principal); N10 Acute pyelonephritis; N17.9 Acute kidney failure, unspecified; E87.1 Hypo-osmolality and hyponatremia; Z68.41 Body mass index [BMI] 40.0-44.9, adult; I12.9 Hypertensive chronic kidney disease with stage 1 through stage 4 chronic kidney disease, or unspecified chronic kidney disease; E11.22 Type 2 diabetes mellitus with diabetic chronic kidney disease; N18.31 Chronic kidney disease, stage 3a; Z79.85 Long-term (current) use of injectable non-insulin antidiabetic drugs; Z87.440 Personal history of urinary (tract) infections; N39.41 Urge incontinence; N32.81 Overactive bladder; E87.6 Hypokalemia; G47.33 Obstructive sleep apnea (adult) (pediatric); E66.01 Morbid (severe) obesity due to excess calories; W18.12XA Fall from or off toilet with subsequent striking against object, initial encounter; Y92.002 Bathroom of unspecified non-institutional (private) residence as the place of occurrence of the external cause; E03.9 Hypothyroidism, unspecified; E78.5 Hyperlipidemia, unspecified; Z79.82 Long term (current) use of aspirin; Z85.42 Personal history of malignant neoplasm of other parts of uterus; Z96.651 Presence of right artificial knee joint; Z96.652 Presence of left artificial knee joint; Z90.710 Acquired absence of both cervix and uterus; Z87.891 Personal history of nicotine dependence
CPT/HCPCS: 36415; 70450; 72125; 74176; 76770; 80053; 80069; 80076; 81001; 82803; 82962; 83036; 83605; 83735; 84484; 85025; 85027; 85610; 86140; 87040; 87086; 87636; 87800; 93005; 99285; 99291; A9270; J0696; J1650; J3480; J7030